=== PATIENT | female | born 1995 | race Hispanic/Latino ===

== ENCOUNTER 2021-05-20 11:05 | Emergency (ER) | payer SELFPAY ==
--- NOTE | 2021-05-20 11:48 | ER ---
Nurse's Notes [facility] Name: Sarah Brunner Age: 25 yrs Sex: Female : 1995 Arrival Date: 05/20/2021 Time: 11:08 Bed 12 Private MD: None, None Diagnosis: Acute serous otitis media, bilateral-Unresponsive to ciprofloxacin Presentation: 05/20 11:14 Chief complaint: Patient states: ear infection X 2 weeks, started in right now in left, iw was on abx has three more pills left, not getting better. Coronavirus screen: At this time, the client does not indicate any symptoms associated with coronavirus-19. Ebola Screen: Patient negative for fever greater than or equal to 101.5 degrees Fahrenheit, and additional compatible Ebola Virus Disease symptoms Patient denies exposure to infectious person. Patient denies travel to an Ebola-affected area in the 21 days before illness onset. No symptoms or risks identified at this time. Initial Sepsis Screen: Does the patient meet any 2 criteria? No. Patient's initial sepsis screen is negative. Does the patient have a suspected source of infection? No. Patient's initial sepsis screen is negative. Risk Assessment: Do you want to hurt yourself or someone else? Patient reports no desire to harm self or others. Onset of symptoms was May 06, 2021. 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 - Social history:: Smoking status: Patient uses street drugs, marijuana. Screenin:22 Abuse screen: Denies threats or abuse. Denies injuries from another. Nutritional iw screening: No deficits noted. Tuberculosis screening: No symptoms or risk factors identified. Fall Risk None identified. Assessment: 11:22 General: Appears in no apparent distress. Behavior is calm, cooperative. Pain:. Neuro: iw Level of Consciousness is awake, alert, obeys commands, Oriented to person, place, time, situation, Moves all extremities. Full function. EENT: Reports pain in right ear and left ear. Vital Signs: 11:14 BP 121 / 85; Pulse 62; Resp 16; Temp 98.6; Pulse Ox 97% on R/A; Weight 58.97 kg; Height iw 5 ft. 1 in. (154.94 cm); Pain 5/10; 11:14 Body Mass Index 24.56 (58.97 kg, 154.94 cm) iw ED Course: 11:08 Patient arrived in ED. ap4 11:08 None, None is Private Physician. ap4 11:16 Triage completed. iw 11:16 Arm band placed on. iw 11:17 Ramirez Young MD is Attending Physician. kdr 11:22 Shaunna Breaux, RN is Primary Nurse. iw 11:55 No provider procedures requiring assistance completed. Patient did not have IV access ss during this emergency room visit. Administered Medications: No medications were administered Outcome: 11:48 Discharge ordered by . kdr 11:55 Discharged to home ambulatory, with family. ss 11:55 Condition: good 11:55 Discharge instructions given to patient, Instructed on discharge instructions, follow up and referral plans. Demonstrated understanding of instructions, follow-up care, medications, Prescriptions given X 2. 11:56 Patient left the ED. ss Signatures: Ramirez Young MD MD kdr Shaunna Breaux, MATHEW CARMONA Leisa Raza RN RN Susu Salcedo ap4
--- NOTE | 2021-05-20 11:48 | EDPHYS ---
Physician Documentation [facility] Name: Sarah Brunner Age: 25 yrs Sex: Female : 1995 Arrival Date: 05/20/2021 Time: 11:08 Bed 12 Private MD: None, None ED Physician Ramirez Young HPI: 05/20 16:45 This 25 yrs old Female presents to ER via Ambulatory with complaints of Ear kdr Pain. 16:45 The patient presents with pain. The complaints affect the left ear and right ear. kdr Onset: The symptoms/episode began/occurred gradually, 2 week(s) ago. Modifying factors: The symptoms are alleviated by nothing, the symptoms are aggravated by nothing. Associated signs and symptoms: The patient has no apparent associated signs or symptoms. Severity of symptoms: At their worst the symptoms were mild in the emergency department the symptoms are unchanged. The patient has not experienced similar symptoms in the past. The patient has been recently seen by a physician: Was seen at outside facility ([facility]) and given antibiotics which she has taken intermittently. 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 - Social history:: Smoking status: Patient uses street drugs, marijuana. ROS: 16:45 Constitutional: Negative for fever, chills, and weight loss, Eyes: Negative for injury, kdr pain, redness, and discharge, Neck: Negative for injury, pain, and swelling. 16:45 ENT: Positive for ear pain. Exam: 16:45 ENT: External ear(s): are unremarkable, Ear canal(s): are normal, TM's: bulging, kdr decreased mobility, dullness, erythema, bilaterally. 16:53 Constitutional: This is a well developed, well nourished patient who is awake, alert, kdr and in no acute distress. Head/Face: Normocephalic, atraumatic. Eyes: Pupils equal round and reactive to light, extra-ocular motions intact. Lids and lashes normal. Conjunctiva and sclera are non-icteric and not injected. Cornea within normal limits. Periorbital areas with no swelling, redness, or edema. Neck: Trachea midline, no thyromegaly or masses palpated, and no cervical lymphadenopathy. Supple, full range of motion without nuchal rigidity, or vertebral point tenderness. No Meningismus. Chest/axilla: Normal chest wall appearance and motion. Nontender with no deformity. No lesions are appreciated. Vital Signs: 11:14 BP 121 / 85; Pulse 62; Resp 16; Temp 98.6; Pulse Ox 97% on R/A; Weight 58.97 kg; Height iw 5 ft. 1 in. (154.94 cm); Pain 5/10; 11:14 Body Mass Index 24.56 (58.97 kg, 154.94 cm) iw MDM: 11:48 Patient medically screened. kdr 16:45 Data reviewed: vital signs, nurses notes. Counseling: I had a detailed discussion with kdr the patient and/or guardian regarding: the historical points, exam findings, and any diagnostic results supporting the discharge/admit diagnosis, the need for outpatient follow up. Administered Medications: No medications were administered Disposition Summary: 05/20/21 11:48 Discharge Ordered Location: Home kdr Problem: an ongoing problem kdr Symptoms: are unchanged kdr Condition: Stable kdr Diagnosis - Acute serous otitis media, bilateral - Unresponsive to ciprofloxacin kdr Followup: kdr - With: Private Physician - When: 2 - 3 days - Reason: If symptoms return, Further diagnostic work-up, Recheck today's complaints, Continuance of care, Re-evaluation by your physician Discharge Instructions: - Discharge Summary Sheet kdr - Otitis Media, Adult kdr Forms: - Medication Reconciliation Form kdr - Thank You Letter kdr - Antibiotic Education kdr Prescriptions: - Amoxicillin 500 mg Oral Capsule - take 1 capsule by ORAL route every 8 hours for 10 days; 30 tablet; Refills: 0, kdr Product Selection Permitted - Sudafed 12 Hour 120 mg Oral tablet extended release - take 1 tablet by ORAL route every 12 hours As needed; 20 tablet; Refills: 0, kdr Product Selection Permitted Signatures: Ramirez Young MD MD kdr Shaunna Breaux RN RN iw
[2021-05-20 12:02] VITALS: BP 121/85; TEMP 98.6; O2SAT 97
== END 2021-05-20 11:56 | disposition home or self-care (01) ==
LOC: ER 11:05 → EDBD 11:05 → ER 11:56
DX: H65.03 Acute serous otitis media, bilateral (principal)
CPT/HCPCS: 99282

== ENCOUNTER 2021-05-23 08:04 | Emergency (ER) | payer SELFPAY ==
--- OUTSIDE RECORDS SUMMARY | 2021-05-23 08:06 | XMS REPORT | Continuity of Care Document ---
:1995 Author Organization [facility] t Address [address] [place] [address] Care Team Providers Name Role Phone CAMILLE Primary Care Physician Unavailable kina Attending Clinician Unavailable kalen Attending Clinician Unavailable RADHA Attending Clinician Unavailable CAMILLE Attending Clinician Unavailable West Infante Attending Clinician [phone] Wayne Attending Clinician Unavailable YADIRA Attending Clinician Unavailable Jean Carlos STARK Attending Clinician Unavailable Jean Carlos RIVAS Attending Clinician Unavailable MARIA DE JESUS Attending Clinician Unavailable ALLEN Attending Clinician Unavailable DO Ellen VILLA Attending Clinician Unavailable GAEL Admitting Clinician Unavailable ALLEN DO Ellen Admitting Clinician Unavailable Segun Unavailable Unavailable Payers Payer Name Policy Type Policy Number Effective Date Expiration Date S zeinab Sliding Fee - P [id number] 2020 2021 [facility] 00:00:00 00:00:00 Sliding Fee - S [id number] 2020 2021 [facility] 00:00:00 00:00:00 Sliding Fee - CI [id number] 2020 2021 [facility] 00:00:00 00:00:00 Community Health Problems Condition Condition Condition Status Onset Resolution Last Treating Co mments Source Name Details Category Date Date Treatment Clinician Date Screening Condition Active 2020-10-26 Jose Cast for 10-26 11:41:51 Mariza Kojo pulmonary 00:00: ty TB 00 Health Allergies, Adverse Reactions, Alerts This patient has no known allergies or adverse reactions. Social History Social Habit Start Date Stop Date Quantity Comments Source bone marrow 2020-10-26 2020-10-26 No [facility] transplant, hx of 11:24:21 11:24:21 Health tuberculosis 2020-10-26 2020-10-26 No [facility] exposure risk 11:24:21 11:24:21 Health is there any chance 2020-10-26 2020-10-26 No [facility] that you could be 11:24:21 11:24:21 Health ? if the patient is 2020-10-26 2020-10-26 No [facility] using/has used a 11:24:21 11:24:21 Health vaping item, Current, Former, Never Used, Not asked time of call 2020-10-25 2020-10-25 10/25/2020 [facility] 11:03:55 11:03:55 11:04 AM Health Medications Ordered Filled Start Stop Current Ordering Indication Dosage Frequency Signature Comments Components Source Medication Medication Date Date Medication? Clinician (SIG) Name Name (AMOXICILLI Yes Silvia Take 1 [place] N) 500 MG 8-11 [facility] capsule by Co m[facility]i CAPS 00:00: Naresh mouth ty 00 every Health eight hours as directed take until gone for dental infection IBU Yes Silvia Take 1 [facility] (IBUPROFEN) 8-11 [facility] tablet by C ommuni 800 MG TABS 00:00: Naresh mouth ty 00 every Health eight hours as needed for pain Vital Signs Vital Name Observation Time Observation Value Comments Source pulse rate 2021-02-09 09:34:59 56 /min [facility] blood pressure, 2021-02-09 09:34:59 68 mm[Hg] [facility] diastolic Health blood pressure, 2021-02-09 09:34:59 106 mm[Hg] [facility] systolic Health blood pressure, 2020-10-26 11:24:21 70 mm[Hg] [facility] diastolic Health blood pressure, 2020-10-26 11:24:21 113 mm[Hg] [facility] systolic Health oxygen saturation, 2020-10-26 11:24:21 98 /min Radha hernandez [facility] oximetry Health pulse rate 2020-10-26 11:24:21 64 /min [facility] temperature site 2020-10-26 11:24:21 temporal Lega cy [facility] Health temperature E&M 2020-10-26 11:24:21 97.2 [degF] [facility] weight E&M 2020-10-26 11:24:21 127.25 [lb_av] [facility] in [facility] 2020-10-26 11:24:21 57.84 kg L egacy [facility] E& Health height in 2020-10-26 11:24:21 154.94 cm [facility] centimeters E&M Health Procedures Procedure Date / Time Performed Performing Clinician Sourc e PPD - In House 2020-10-26 11:36:56 Jeff Cruz [facility] Health Vaccines Ordered - 2020-10-26 11:27:00 Jeff Cruz [facility] Consent/Declination Forms Encounters Start End Encounter Admission Attending Care Care Encounter Source Date/Time Date/Time Type Type Clinicians Facility Department ID 2021-04-17 Outpatient [email or web address] [facility] [id number] [facility] 14:15:37 [id number] [facility] 2021-04-17 Outpatient [email or web address] [facility] [id number] [facility] 12:24:01 [id number] [facility] 2021-04-17 Outpatient [email or web address] [facility] [id number] [facility] 11:59:04 [id number] [facility] 2021-04-17 Outpatient [email or web address] [facility] [id number] [facility] 11:14:38 [id number] [facility] 2021-04-17 Outpatient [email or web address] [facility] [id number] [facility] 11:11:07 n [id number] [facility] 2021-04-17 Outpatient [email or web address] [facility] [id number] [facility] 11:01:40 n [id number] [facility] 2021-04-17 Outpatient [email or web address] [facility] [id number] [facility] 10:58:42 n [id number] [facility] 2021-06-22 2021-06-22 Outpatient , [facility] [id number] [place] 00:00:00 00:00:00 Health 2021-04-13 2021-04-13 Outpatient , [facility] [id number] [place] 06:26:41 16:20:28 [facility] 2021-03-02 2021-03-02 Outpatient LE, RAIN [facility] [id number] [place] 09:44:42 11:02:28 [facility] 2021-02-10 2021-02-10 Outpatient CAMILLE, [facility] [id number] [place] 00:00:00 00:00:00 [facility] 2021-02-09 2021-02-09 Office Silvia Infante [facility] Encounter/ [facility] 00:00:00 00:00:00 Visit Wayne Brittanie [id number] [facility] [id number] [facility] 2021-01-13 2021-01-13 Outpatient CAMILLE, [facility] [id number] [place] 11:17:18 11:24:03 [facility] 2021-01-13 2021-01-13 Outpatient CAMILLE, [facility] [id number] [place] 10:01:53 10:40:57 [facility] 2021-01-13 2021-01-13 Outpatient CAMILLE, [facility] [id number] [place] 00:00:00 00:00:00 [facility] 2021-01-12 2021-01-12 Outpatient CAMILLE, [facility] [id number] [place] 00:00:00 00:00:00 [facility] 2021-01-06 2021-01-11 Inpatient ABID, [facility] [id number] [place] 17:41:00 13:00:00 [facility] 2021-01-05 2021-01-05 Outpatient CAMILLE, [facility] [id number] [place] 14:56:51 23:59:00 [facility] 2021-01-05 2021-01-05 Emergency [facility] [id number] [place] 13:56:00 14:40:00 [facility] 2020-12-08 2020-12-08 Outpatient STARK, [facility] [id number] [place] 06:36:26 09:31:41 [facility] 2020-12-07 2020-12-07 Outpatient EVELYN, [facility] [id number] [place] 00:00:00 00:00:00 [facility] 2020-08-11 2020-08-25 [id number] [place] 00:00:00 00:00:00 JOSH [address] 2020-08-09 2020-08-11 Emergency SVACH, [facility] [id number] [place] 00:00:00 00:00:00 L[facility] [address] Results Test Description Test Time Test Comments Results Result Comments Source PPD results in mm 2020-10-28 08:46:32 Test Item Value Reference Range Interpretation Comme nts PPD results in mm (test code = 443757) 0 [facility] [Presence] in Respiratory specimen by GWEN with probe [id number] 19:08:37 Test Item Value Reference Range Interpretation Comments SARS-CoV-2 (COVID-19) RNA Not detected Not-Detected [Presence] in Respiratory specimen by GWEN with probe detection (test code = 46772-3)
--- NOTE | 2021-05-23 08:29 | ER ---
Nurse's Notes [facility] Name: Sarah Brunner Age: 25 yrs Sex: Female : 1995 Arrival Date: 05/23/2021 Time: 08:05 Bed Waiting Private MD: Diagnosis: Unspecified otitis externa, left ear Presentation: 05/23 08:23 Chief complaint: Patient states: left ear pain X 2 weeks , has been on two abx. iw Coronavirus screen: At this time, the client does not indicate any symptoms associated with coronavirus-19. Ebola Screen: Patient negative for fever greater than or equal to 101.5 degrees Fahrenheit, and additional compatible Ebola Virus Disease symptoms Patient denies exposure to infectious person. Patient denies travel to an Ebola-affected area in the 21 days before illness onset. No symptoms or risks identified at this time. Initial Sepsis Screen: Does the patient meet any 2 criteria? No. Patient's initial sepsis screen is negative. Does the patient have a suspected source of infection? No. Patient's initial sepsis screen is negative. Risk Assessment: Do you want to hurt yourself or someone else? Patient reports no desire to harm self or others. Onset of symptoms was May 11, 2021. 08:23 Method Of Arrival: Ambulatory iw 08:23 Acuity: VIC 4 iw Historical: - Allergies: 08:24 No Known Allergies; iw - Home Meds: 08:24 None [Active]; iw - PMHx: 08:24 None; iw - PSHx: 08:24 back; iw - Immunization history:: Adult Immunizations unknown. - Social history:: Smoking status: . Screenin:26 Abuse screen: Denies threats or abuse. Denies injuries from another. Nutritional iw screening: No deficits noted. Tuberculosis screening: No symptoms or risk factors identified. Fall Risk None identified. Assessment: 08:25 General: Appears in no apparent distress. Behavior is calm, cooperative. Pain: iw Complains of pain in left eye. Neuro: Level of Consciousness is awake, alert, obeys commands, Oriented to person, place, time, situation, Moves all extremities. Full function. EENT: Ear canal. Derm: Skin is intact, is healthy with good turgor. Musculoskeletal: Range of motion: intact in all extremities. Vital Signs: 08:23 BP 120 / 73; Pulse 64; Resp 16; Temp 97.6; Pulse Ox 100% on R/A; iw ED Course: 08:05 Patient arrived in ED. ds1 08:24 Triage completed. iw 08:25 Arm band placed on. iw 08:26 No provider procedures requiring assistance completed. Patient did not have IV access iw during this emergency room visit. 08:27 Phil Ingram NP is PHCP. pm1 08:27 Ramirez Young MD is Attending Physician. pm1 08:43 Shaunna Breaux, RN is Primary Nurse. iw 08:43 Patient has correct armband on for positive identification. iw Administered Medications: No medications were administered Outcome: :28 Discharge ordered by MD. pm1 08:43 Discharged to home ambulatory. iw 08:43 Condition: good 08:43 Discharge instructions given to patient, Instructed on discharge instructions, follow up and referral plans. medication usage, Demonstrated understanding of instructions, follow-up care, medications, Prescriptions given X 1. 08:43 Patient left the ED. 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
--- NOTE | 2021-05-23 08:29 | EDPHYS ---
Physician Documentation [facility] Name: Sarah Brunner Age: 25 yrs Sex: Female : 1995 Arrival Date: 05/23/2021 Time: 08:05 Bed Waiting Private MD: ED Physician Ramirez Young HPI: 05/23 08:28 This 25 yrs old Female presents to ER via Ambulatory with complaints of Ear pm1 Pain. 08:28 The patient presents with pain. The complaints affect the left ear. Onset: The pm1 symptoms/episode began/occurred 2 week(s) ago. Modifying factors: The symptoms are alleviated by nothing, the symptoms are aggravated by nothing. Associated signs and symptoms: Pertinent negatives: fever. Severity of symptoms: in the emergency department the symptoms have improved prior visit patient diagnosed with bilateral otitis media. Patient currently only complaining of left ear pain. The patient has been recently seen at the [facility] Emergency Department, for similar complaints was given a prescription for antibiotics, 3 days ago. Historical: - Allergies: 08:24 No Known Allergies; iw - Home Meds: 08:24 None [Active]; iw - PMHx: 08:24 None; iw - PSHx: 08:24 back; iw - Immunization history:: Adult Immunizations unknown. - Social history:: Smoking status: . ROS: 08:28 Constitutional: Negative for fever, chills, and weight loss. pm1 08:28 Cardiovascular: Negative for chest pain, palpitations, and edema, Respiratory: Negative for shortness of breath, cough, wheezing, and pleuritic chest pain, Abdomen/GI: Negative for abdominal pain, nausea, vomiting, diarrhea, and constipation, Neuro: Negative for headache, weakness, numbness, tingling, and seizure. 08:28 ENT: Positive for ear pain, Negative for drainage from ear(s), sore throat. 08:28 All other systems are negative. Exam: 08:28 Constitutional: This is a well developed, well nourished patient who is awake, alert, pm1 and in no acute distress. Head/Face: Normocephalic, atraumatic. 08:28 Skin: Warm, dry with normal turgor. Normal color with no rashes, no lesions, and no evidence of cellulitis. MS/ Extremity: Pulses equal, no cyanosis. Neurovascular intact. Full, normal range of motion. 08:28 ENT: External ear(s): are unremarkable, Ear canal(s): swelling, that is minimal, of the left canal, TM's: are normal, bilaterally, Mouth: no acute changes, Lips: normal, moist, Oral mucosa: normal, pink and intact, moist. 08:28 Cardiovascular: Exam negative for acute changes, Rate: normal, Rhythm: regular, Pulses: no pulse deficits are appreciated, Heart sounds: normal. 08:28 Respiratory: Exam negative for acute changes, respiratory distress, shortness of breath. 08:28 Neuro: Exam negative for acute changes, Orientation: is normal, Mentation: is normal, Motor: is normal, moves all fours, Gait: is steady, at a normal pace, without difficulty. Vital Signs: 08:23 BP 120 / 73; Pulse 64; Resp 16; Temp 97.6; Pulse Ox 100% on R/A; iw MDM: 08:27 Data reviewed: vital signs. Data interpreted: Pulse oximetry: on room air is 100 %. pm1 Interpretation: normal. Counseling: I had a detailed discussion with the patient and/or guardian regarding: the historical points, exam findings, and any diagnostic results supporting the discharge/admit diagnosis, the need for outpatient follow up, an ENT specialist, to return to the emergency department if symptoms worsen or persist or if there are any questions or concerns that arise at home. 08:28 Patient medically screened. pm1 08:28 Data reviewed: old medical records, Prior ER visit reviewed from 3 days ago. Patient pm1 diagnosed with bilateral otitis media. Patient without any signs of otitis media present. Antibiotics and treatment from prior visit addressing that issue however otitis external to left ear is now present will treat with appropriate medication. Administered Medications: No medications were administered Disposition: 13:37 Co-signature as Attending Physician, Ramirez Young MD I agree with the assessment and kdr plan of care. Disposition Summary: 05/23/21 08:28 Discharge Ordered Location: Home pm1 Problem: new pm1 Symptoms: have improved pm1 Condition: Stable pm1 Diagnosis - Unspecified otitis externa, left ear pm1 Followup: pm1 - With: Emergency Department - When: As needed - Reason: Worsening of condition Followup: pm1 - With: Private Physician - When: 2 - 3 days - Reason: Recheck today's complaints, Continuance of care, Re-evaluation by your physician Discharge Instructions: - Discharge Summary Sheet pm1 - Ear Drops, Adult pm1 - Otitis Externa pm1 Forms: - Medication Reconciliation Form pm1 - Thank You Letter pm1 - Antibiotic Education pm1 - Prescription Opioid Use pm1 Prescriptions: - Hydrocortisone/neomycin/polymyxin otic suspension - instill 4 drop by OTIC route every 6 hours for 10 days; 10 milliliter; Refills: pm1 0, Product Selection Permitted Signatures: Ramirez Young MD MD kdr Shaunna Breaux RN RN iw Phil Ingram NP VETERINARY PATHOLOGIST pm1 Corrections: (The following items were deleted from the chart) 08:25 08:24 Home Meds: Unable to obtain; [facility]
[2021-05-23 08:52] VITALS: BP 120/73; TEMP 97.6; O2SAT 100
== END 2021-05-23 08:43 | disposition home or self-care (01) ==
LOC: ER 08:04
DX: H60.92 Unspecified otitis externa, left ear (principal)
CPT/HCPCS: 99282

== ENCOUNTER 2021-06-01 10:49 | Emergency (ER) | payer SELFPAY ==
--- OUTSIDE RECORDS SUMMARY | 2021-06-01 11:11 | XMS REPORT | Continuity of Care Document ---
:[address] [facility] t Address [address] [place] [address] Dr. Olson [address] [place] [address] Care Team Providers Name Role Phone CAMILLE Primary Care Physician Unavailable kina Attending Clinician Unavailable kalen Attending Clinician Unavailable RADHA Attending Clinician Unavailable CAMILLE Attending Clinician Unavailable [place] Infante Attending Clinician [phone] Wayne Attending Clinician Unavailable YADIRA Attending Clinician [...] Date S zeinab Sliding Fee - P [id number] 2020 2021 [facility] 00:00:00 00:00:00 Sliding Fee - S [id number] 2020 2021 [facility] 00:00:00 00:00:00 Sliding Fee - CI [id number] 2020 2021 [facility] 00:00:00 00:00:00 [...] is there any chance 2020-10-26 2020-10-26 [facility] could be 11:24:21 11:24:21 Health ? if the patient is 2020-10-26 2020-10-26 No [facility] using/has used a 11:24:21 11:24:21 Health vaping [...] Source pulse rate 2021-02-09 09:34:59 56 /min [facility] blood pressure, 2021-02-09 09:34:59 68 mm[Hg] [facility] diastolic Health blood pressure, 2021-02-09 09:34:59 106 mm[Hg] [facility] systolic Health temperature E&M 2020-10-26 11:24:21 97.2 [degF] [facility] Health weight E&M 2020-10-26 11:24:21 127.25 [lb_av] [facility] Health weight in kilograms 2020-10-26 11:24:21 57.84 kg L [facility] E&M Health height in 2020-10-26 11:24:21 154.94 cm [facility] centimeters [facility]M Health blood pressure, 2020-10-26 11:24:21 70 mm[Hg] [facility] diastolic Health blood pressure, 2020-10-26 11:24:21 113 mm[Hg] [facility] systolic Health oxygen saturation, 2020-10-26 11:24:21 98 /min Radha hernandez [facility] oximetry Health pulse rate 2020-10-26 11:24:21 64 /min [facility] 2020-10-26 11:24:21 temporal Lega [facility] Procedures Procedure Date / Time Performed Performing Clinician Sourc e PPD - In House 2020-10-26 11:36:56 Jeff Cruz Commu nit Health Vaccines Ordered - 2020-10-26 11:27:00 [facility] Consent/Declination Forms Encounters Start End Encounter Admission Attending Care Care Encounter Source Date/Time Date/Time Type Type Clinicians Facility Department ID 2021-04-17 Outpatient lc.maria elena [facility] [id number] [facility] 14:15:37 [id number] [facility] 2021-04-17 Outpatient lc.nikiaarp [facility] [id number] [facility] 12:24:01 [id number] [facility] 2021-04-17 Outpatient lc.nikiaarp [facility] [id number] [facility] 11:59:04 [id number] [facility] 2021-04-17 Outpatient lc.maria elena [facility] [id number] [facility] 11:14:38 [id number] [facility] 2021-04-17 Outpatient lc.justinkirstie [facility] [id number] [facility] 11:11:07 n [id number] [facility] 2021-04-17 Outpatient lc.justinkirstie [facility] [id number] [facility] 11:01:40 n [id number] [facility] 2021-04-17 Outpatient lc.justinkirstie [facility] [id number] [facility] 10:58:42 n [id number] [facility] 2021-06-22 2021-06-22 Outpatient LE, [facility] [id number] [place] 00:00:00 00:00:00 Health 2021-04-13 2021-04-13 Outpatient , [facility] [id number] [place] 06:26:41 16:20:28 [facility] 2021-03-02 2021-03-02 Outpatient LE, RAIN [facility] [id number] [place] 09:44:42 11:02:28 [facility] 2021-02-10 2021-02-10 Outpatient CAMILLE, [facility] [id number] [place] 00:00:00 00:00:00 [facility] 2021-02-09 2021-02-09 Office Silvia Infante [facility] Encounter/ [facility] 00:00:00 00:00:00 Visit Wayne Brittanie [id number] [facility] [id number] [facility] 2021-01-13 2021-01-13 Outpatient CAMILLE, [facility] [id number] [place] 11:17:18 11:24:03 [facility] 2021-01-13 2021-01-13 Outpatient CAMILLE, [facility] [id number] [place] 10:01:53 10:40:57 [facility] 2021-01-13 2021-01-13 Outpatient CAMILLE, [facility] [id number] [place] 00:00:00 00:00:00 [facility] 2021-01-12 2021-01-12 Outpatient CAMILLE, [facility] [id number] [place] 00:00:00 00:00:00 [facility] 2021-01-06 2021-01-11 Inpatient ABID, [facility] [id number] [place] 17:41:00 13:00:00 [facility] 2021-01-05 2021-01-05 Outpatient CAMILLE, [facility] [id number] [place] 14:56:51 23:59:00 [facility] 2021-01-05 2021-01-05 Emergency [facility] [id number] [place] 13:56:00 14:40:00 [facility] 2020-12-08 2020-12-08 Outpatient STARK, [facility] [id number] [place] 06:36:26 09:31:41 [facility] 2020-12-07 2020-12-07 Outpatient EVELYN, [facility] [id number] [place] 00:00:00 00:00:00 [facility] 2020-08-11 2020-08-25 [id number] [place] 00:00:00 00:00:00 JOSH [address] 2020-08-09 2020-08-11 Emergency SVACH, [facility] [id number] [place] 00:00:00 00:00:00 LORY [address] Results Test Description Test Time Test Comments Results Result Comments Source PPD results in mm 2020-10-28 08:46:32 Test Item Value Reference Range Interpretation Comme nts PPD results in mm (test code = 594671) 0 [facility] RNA [Presence] in Respiratory specimen by GWEN with probe [id number] 19:08:37 Test Item Value Reference Range Interpretation Comments SARS-CoV-2 (COVID-19) RNA Not detected Not-Detected [Presence] in Respiratory specimen by GWEN with probe detection (test code = 94084-4)
[2021-06-01 13:00] LABS: Urine Blood Negative (Negative); Urine Glucose Negative (Negative); Urine Protein Negative (Negative); Urine Specific Gravity 1.025 (1.005-1.030)
--- NOTE | 2021-06-01 14:05 | ER ---
[facility]'s [facility] Name[facility] Sarah Brun[facility] Age: 25 yrs Sex: Female : 1995 Arrival Date: 06/01/2021 Time: 10:51 Bed 12 Private MD: Diagnosis: Dysuria Presentation: 06/01 11:06 Chief complaint: Patient states: Odor in urine, cloudy, and burning for about a week. vg1 Denies NV or blood in urine. States Lower ABD pain. Coronavirus screen: Vaccine status: Patient reports receiving the 2nd dose of the covid vaccine. Ebola Screen: Patient negative for fever greater than or equal to 101.5 degrees Fahrenheit, and additional compatible Ebola Virus Disease symptoms. Initial Sepsis Screen: Does the patient meet any 2 criteria? No. Patient's initial sepsis screen is negative. Does the patient have a suspected source of infection? No. Patient's initial sepsis screen is negative. Risk Assessment: Do you want to hurt yourself or someone else? Patient reports no desire to harm self or others. Onset of symptoms was May 25, 2021. 11:06 Method Of Arrival: Ambulatory vg1 11:06 Acuity: VIC 3 vg1 Triage Assessment: 11:07 General: Appears in no apparent distress. comfortable, Behavior is calm, cooperative. vg1 Pain: Complains of pain in suprapubic area, right lower quadrant and left lower quadrant. 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 - Social history:: Smoking status: Patient denies any tobacco usage or history of. Screenin:16 Abuse screen: Denies threats or abuse. Denies injuries from another. Nutritional ss screening: No deficits noted. Tuberculosis screening: Never had TB. Fall Risk None identified. Assessment: 14:16 General: Appears in no apparent distress. comfortable, Behavior is calm, cooperative. ss Neuro: Level of Consciousness is awake, alert, obeys commands, Oriented to person, place, time, situation. Cardiovascular: Capillary refill < 3 seconds is brisk in bilateral fingers. Respiratory: Airway is patent Respiratory effort is even, unlabored, Respiratory pattern is regular, symmetrical. GI: Patient currently denies diarrhea, nausea, vomiting. : No signs and/or symptoms were reported regarding the genitourinary system. EENT: Oral mucosa is moist. Derm: Skin is intact, is healthy with good turgor, Skin is dry, Skin is pink, warm \T\ dry. normal. Vital Signs: 11:06 BP 105 / 65; Pulse 90; Resp 16; Temp 97.6; Pulse Ox 99% ; Weight 58.97 kg; Height 5 ft. vg1 1 in. (154.94 cm); Pain 4/10; 11:06 Body Mass Index 24.56 (58.97 kg, 154.94 cm) vg1 ED Course: 10:51 Patient arrived in ED. as 11:07 Triage completed. vg1 11:07 Arm band placed on. vg1 11:46 James Muniz PA is PHCP. [facility] 11:46 Justin Garnica MD is Attending Physician. [facility] 14:14 Leisa Raza, MATHEW is Primary Nurse. ss 14:16 Patient has correct armband on for positive identification. Bed in low position. Call ss light in reach. 14:18 No provider procedures requiring assistance completed. Patient did not have IV access ss during this emergency room visit. Administered Medications: No medications were administered Outcome: 14:04 Dis[address] ordered [address] . [facility] 14:18 Discharged to home ambulatory, with family. ss 14:18 Condition: good 14:18 Discharge instructions given to patient, family, Instructed on discharge instructions, follow up and referral plans. medication usage, Demonstrated understanding of instructions, follow-up care, medications, Prescriptions given X 2. 14:18 Patient left the ED. ss Signatures: James Muniz PA PA jmm Martinez, Amelia as Smirch, Shelby, MATHEW RN Aarti Dooley RN RN vg1
--- NOTE | 2021-06-01 14:05 | EDPHYS ---
Physician Documentation [facility] Name: Sarah Brunner Age: 25 yrs Sex: Female : 1995 Arrival Date: 06/01/2021 Time: 10:51 Bed 12 Private MD: MICK Physician Justin Garnica HPI: 06/01 12:55 This 25 yrs old Female presents to ER via Ambulatory with complaints of jmm Urinary Problem. 12:55 The patient presents with perineal itching. Onset: The symptoms/episode began/occurred jmm gradually, 2 week(s) ago. Modifying factors: The symptoms are alleviated by nothing, the symptoms are aggravated by nothing. This is a 25-year-old female no chronic medical conditions presents emerged part with complaints of dysuria, vaginal itching which the patient states is consistent with previous urinary tract infections. Patient states that symptoms were exacerbated after intercourse.. 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 - Social history:: Smoking status: Patient denies any tobacco usage or history of. ROS: 12:55 Constitutional: Negative for fever, chills, and weight loss, Cardiovascular: Negative jmm for chest pain, palpitations, and edema, Respiratory: Negative for shortness of breath, cough, wheezing, and pleuritic chest pain. 12:55 : Positive for urinary symptoms. 12:55 All other systems are negative. Exam: 12:55 Constitutional: This is a well developed, well nourished patient who is awake, alert, jmm and in no acute distress. Head/Face: atraumatic. Eyes: EOMI, no conjunctival erythema appreciated ENT: Moist Mucus Membranes Neck: Trachea midline, Supple Chest/axilla: Normal chest wall appearance and motion. Cardiovascular: Regular rate and rhythm. No edema appreciated Respiratory: Normal respirations, no respiratory distress appreciated Abdomen/GI: Non distended, soft Back: Normal ROM Skin: General appearance color normal MS/ Extremity: Moves all extremities, no obvious deformities appreciated, no edema noted to the lower extremities Neuro: Awake and alert, normal gait Psych: Behavior is normal, Mood is normal, Patient is cooperative and pleasant Vital Signs: 11:06 BP 105 / 65; Pulse 90; Resp 16; Temp 97.6; Pulse Ox 99% ; Weight 58.97 kg; Height 5 ft. vg1 1 in. (154.94 cm); Pain 4/10; 11:06 Body Mass Index 24.56 (58.97 kg, 154.94 cm) vg1 MDM: 12:55 Patient medically screened. [facility] 14:03 Data reviewed: vital signs, nurses notes. Counseling: I had a detailed discussion with jake the patient and/or guardian regarding: the historical points, exam findings, and any diagnostic results supporting the discharge/admit diagnosis, lab results, the need for outpatient follow up, to return to the emergency department if symptoms worsen or persist or if there are any questions or concerns that arise at home. 14:09 ED course: Patient refused pelvic exam. Advised follow-up with REHABILITATION CASEWORKER for further [facility] evaluation. Patient understood and agrees plan of care.. 06/01 12:59 Order name: Urine Dipstick-Ancillary EDMS 06/01 14:08 Order name: Urine --Ancillary (enter results) bd Administered Medications: No medications were administered Disposition: 06/02 09:16 Co-signature as Attending Physician, Justin Garnica MD I agree with the assessment and [facility] plan of care. Disposition Summary: 06/01/21 14:04 Discharge Ordered Location: Home [facility] Condition: Stable [facility] Diagnosis - Dysuria [facility] Followup: [facility] - With: Private Physician - When: 2 - 3 days - Reason: Recheck today's complaints, Continuance of care, Re-evaluation by your physician Discharge Instructions: - Discharge Summary Sheet [facility] - Bacterial Vaginosis [facility] - Dysuria [facility] Forms: - Medication Reconciliation Form [facility] - Thank You Letter [facility] - Antibiotic Education [facility] - Prescription Opioid Use [facility] - Work release form ss Prescriptions: - Flagyl 500 mg Oral Tablet - take 1 tablet by ORAL route every 12 hours for 7 days; 14 tablet; Refills: 0, [facility] Product Selection Permitted - Bactrim DS 800-160 mg Oral Tablet - take 1 tablet by ORAL route every 12 hours for 7 days; 14 tablet; Refills: 0, [facility] Product Selection Permitted Signatures: Dispatcher [employer] EDMS Nahun, Justin, James Harris MD, cha, PA PA jmm Garcia, Victoria, RN RN vg1 Corrections: (The following items were deleted from the chart) 06/01 14:14 13:27 Pelvic Exam Setup ordered. danielle duncan
[2021-06-01 14:25] VITALS: BP 105/65; TEMP 97.6; O2SAT 99
[2021-06-01 14:42] LABS: Urine Specific Gravity/Preg 1.025 (1.005-1.030)
== END 2021-06-01 14:18 | disposition home or self-care (01) ==
LOC: ER 10:49
DX: R30.0 Dysuria (principal)
CPT/HCPCS: 81003; 81025; 99282

== ENCOUNTER 2021-08-02 13:52 | Emergency (ER) | payer SELFPAY ==
--- OUTSIDE RECORDS SUMMARY | 2021-08-02 13:56 | XMS REPORT | Continuity of Care Document ---
:1995 Author Organization [facility] t Address [address] [place] [address] Dr. Olson [address] [place] [address] Care Team Providers Name Role Phone CAMILLE Primary Care Physician Unavailable kina Attending Clinician Unavailable kalen Attending Clinician Unavailable RADHA Attending Clinician Unavailable CAMILLE Attending Clinician Unavailable [place] Infante Attending Clinician [phone] Wayne Attending Clinician Unavailable YADIRA Attending Clinician [...] Date S zeinab Sliding Fee - P [id number] 2020 2021 [facility] 00:00:00 00:00:00 Sliding Fee - S [id number] 2020 2021 [facility] 00:00:00 00:00:00 Sliding Fee - CI [id number] 2020 2021 [facility] 00:00:00 00:00:00 [...] Source pulse rate 2021-02-09 09:34:59 56 [facility] blood pressure, 2021-02-09 09:34:59 68 mm[Hg] Legac y [facility] diastolic Health blood pressure, 2021-02-09 09:34:59 106 mm[Hg] Legac y [facility] systolic Health blood pressure, 2020-10-26 11:24:21 70 mm[Hg] Legac y [facility] diastolic Health blood pressure, 2020-10-26 11:24:21 113 mm[Hg] Legac y [facility] systolic Health oxygen saturation, 2020-10-26 11:24:21 98 /min Radha hernandez [facility] oximetry Health pulse rate 2020-10-26 11:24:21 64 [facility] temperature site 2020-10-26 11:24:21 temporal Lega cy [facility] Health temperature E&M 2020-10-26 11:24:21 97.2 [degF] [facility]ac [facility] weight E&M 2020-10-26 11:24:21 127.25 [lb_av] [facility] weight in kilograms 2020-10-26 11:24:21 57.84 kg L egacy [facility] E& Health height in 2020-10-26 11:24:21 154.94 [...] Clinicians Facility Department ID 2021-04-17 Outpatient lc.nikiaarp [facility] [id number] [facility] 14:15:37 [id number] Critical access hospital 2021-04-17 Outpatient lc.nikiaarp [facility] [id number] [facility] 12:24:01 [id number] Critical access hospital 2021-04-17 Outpatient lc.nikiaarp [facility] [id number] [facility] 11:59:04 [id number] Critical access hospital 2021-04-17 Outpatient lc.nikiaarp [facility] [id number] [facility] 11:14:38 [id number] Critical access hospital 2021-04-17 Outpatient lc.justinkirstie [facility] [id number] [facility] 11:11:07 n [id number] Critical access hospital 2021-04-17 Outpatient lc.renetta [facility] [id number] [facility] 11:01:40 n [id number] Critical access hospital 2021-04-17 Outpatient lc.justinkirstie [facility] [id number] [facility] 10:58:42 n [id number] Critical access hospital 2021-06-22 2021-06-22 Outpatient , [facility] [id number] [place] 00:00:00 00:00:00 Health 2021-04-13 2021-04-13 Outpatient , [facility] [id number] [place] 06:26:41 16:20:28 [facility] 2021-03-02 2021-03-02 Outpatient LE, RAIN [facility] [id number] [place] 09:44:42 11:02:28 [facility] 2021-02-10 2021-02-10 Outpatient CAMILLE, [facility] [id number] [place] 00:00:00 00:00:00 [facility] 2021-02-09 2021-02-09 Office Silvia Infante [facility] Encounter/ [facility] 00:00:00 00:00:00 Visit Wayne Brittanie [id number] [facility] [id number] [facility] 2021-01-13 2021-01-13 Outpatient CAMILLE, [facility] [id number] [place] 11:17:18 11:24:03 [facility] 2021-01-13 2021-01-13 Outpatient CAMILLE, [facility] [id number] [place] 10:01:53 10:40:57 [facility] 2021-01-13 2021-01-13 Outpatient CAMILLE, [facility] [id number] [place] 00:00:00 00:00:00 [facility] 2021-01-12 2021-01-12 Outpatient CAMILLE, [facility] [id number] [place] 00:00:00 00:00:00 [facility] 2021-01-06 2021-01-11 Inpatient ABID, [facility] [id number] [place] 17:41:00 13:00:00 [facility] 2021-01-05 2021-01-05 Outpatient CAMILLE, [facility] [id number] [place] 14:56:51 23:59:00 [facility] 2021-01-05 2021-01-05 Emergency [facility] [id number] [place] 13:56:00 14:40:00 [facility] 2020-12-08 2020-12-08 Outpatient STARK, [facility] [id number] [place] 06:36:26 09:31:41 [facility] 2020-12-07 2020-12-07 Outpatient EVELYN, [facility] [id number] [place] 00:00:00 00:00:00 [facility] 2020-08-11 2020-08-25 [id number] [place] 00:00:00 00:00:00 JOSH [address] 2020-08-09 2020-08-11 Emergency SVACH, [facility] [id number] [place] 00:00:00 00:00:00 LORY [address] Results Test Description Test Time Test Comments Results Result Comments Source PPD results in mm 2020-10-28 08:46:32 Test Item Value Reference Range Interpretation Comme nts PPD results in mm (test code = 241501) 0 mm [facility] RNA [Presence] in Respiratory specimen by GWEN with probe [id number] 19:08:37 Test Item Value Reference Range Interpretation Comments SARS-CoV-2 (COVID-19) RNA Not detected Not-Detected [Presence] in Respiratory specimen by GWEN with probe detection (test code = 79742-8)
[2021-08-02 14:22] LABS: Urine Blood Negative (Negative); Urine Glucose Negative (Negative); Urine Protein Negative (Negative); Urine Specific Gravity 1.025 (1.005-1.030)
[2021-08-02 15:05] LABS: Urine Bacteria <20 /HPF (<20); Urine Mucus 1+ /HPF (NONE SEEN); Urine RBC <5 /HPF (NONE SEEN)
[2021-08-02 15:06] LABS: Urine Specific Gravity/Preg 1.025 (1.005-1.030)
--- NOTE | 2021-08-02 16:10 | EDPHYS ---
Physician Documentation [facility] Name: Sarah Brunner Age: 25 yrs Sex: Female : 1995 Arrival Date: 08/02/2021 Time: 13:57 Bed 9 Private MD: ED Physician Jorge Mendez HPI: 08/02 16:05 This 25 yrs old Female presents to ER via Ambulatory with complaints of cp Urinary Problem. 16:05 The patient presents with urinary symptoms, urinary odor. cp 16:05 Onset: The symptoms/episode began/occurred 3 week(s) ago. Associated signs and cp symptoms: Pertinent positives: suprapubic pain, Pertinent negatives: fever, vaginal bleeding, vaginal discharge. The patient is sexually active. 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 - Social history:: Smoking status: Patient denies any tobacco usage or history of. Patient uses street drugs, marijuana. ROS: 16:07 Constitutional: Negative for body aches, chills, fever, poor PO intake. cp 16:07 Abdomen/GI: Negative for nausea, vomiting, and diarrhea. 16:07 Back: Negative for pain at rest, pain with movement. 16:07 : Positive for foul smelling urine, suprapubic pain. 16:07 Neuro: Negative for altered mental status, headache, weakness. 16:07 All other systems are negative. Exam: 16:07 Head/Face: Normocephalic, atraumatic. cp 16:07 Constitutional: The patient appears in no acute distress, alert, awake, comfortable, non-toxic, well developed, well nourished. 16:07 Cardiovascular: Rate: normal. 16:07 Respiratory: the patient does not display signs of respiratory distress, Respirations: normal. 16:07 Abdomen/GI: Exam negative for discomfort, distension, guarding, Inspection: abdomen appears normal. 16:07 Back: pain, is absent, ROM is normal. cp Vital Signs: 14:05 BP 112 / 97; Pulse 66; Resp 18; Temp 98.3; Pulse Ox 100% on R/A; Weight 54.43 kg; ld1 Height 5 ft. 1 in. (154.94 cm); Pain 3/10; 14:05 Body Mass Index 22.67 (54.43 kg, 154.94 cm) ld1 MDM: 14:22 Patient medically screened. cp 15:00 Differential diagnosis: cervicitis, ectopic , pelvic inflammatory disease, cp urinary tract infection, vaginosis. 16:08 Data reviewed: vital signs, nurses notes, lab test result(s). cp 16:08 Counseling: I had a detailed discussion with the patient and/or guardian regarding: the cp historical points, exam findings, and any diagnostic results supporting the discharge/admit diagnosis, lab results, to return to the emergency department if symptoms worsen or persist or if there are any questions or concerns that arise at home. 08/02 14:13 Order name: Urine Microscopic Only; Complete Time: 15:57 cp 08/02 14:35 Order name: Urine --Ancillary (enter results); Complete Time: 15:57 bd 08/02 14:13 Order name: Urine Dipstick-Ancillary (obtain specimen); Complete Time: 14:24 cp 08/02 14:13 Order name: Urine Test (obtain specimen); Complete Time: 14:24 cp 08/02 14:53 Order name: Urine Dipstick-Ancillary; Complete Time: 15:57 EDMS 08/02 15:12 Order name: Urine Culture EDMS Administered Medications: No medications were administered Disposition: 16:15 Chart complete. cp 18:24 Co-signature as Attending Physician, Jorge Mendez MD I agree with the assessment and rn plan of care. Attestation: The patient's history, exam findings, diagnostics, and a summary of any interventions or procedures was reviewed in detail with Justin DUTTON. Disposition Summary: 08/02/21 16:09 Discharge Ordered Location: Home cp Problem: new cp Symptoms: are unchanged cp Condition: Stable cp Diagnosis - UTI/ Urinary tract infection, site not specified cp Followup: cp - With: Mario Krishna MD - When: 1 week - Reason: symptoms continue Discharge Instructions: - Discharge Summary Sheet cp - Urinary Tract Infection, Adult cp Forms: - Medication Reconciliation Form cp - Thank You Letter cp - Antibiotic Education cp - Prescription Opioid Use cp Prescriptions: - Bactrim DS 800-160 mg Oral Tablet - take 1 tablet by ORAL route every 12 hours for 5 days; 10 tablet; Refills: 0, cp Product Selection Permitted Signatures: Dispatcher [employer] Jorge Matthews MD MD rn Justin Roger PA PA cp Dibbern, Lauren RN RN ld1
--- NOTE | 2021-08-02 16:10 | ER ---
Nurse's Notes [facility] Name: Sarah Brunner Age: 25 yrs Sex: Female : 1995 Arrival Date: 08/02/2021 Time: 13:57 Bed 9 Private MD: Diagnosis: UTI/ Urinary tract infection, site not specified Presentation: 08/02 14:05 Chief complaint: Patient states: Foul urine smell, urinary pain and lower abdominal ld1 cramping. Has recurrent UTIs. Coronavirus screen: Vaccine status: Patient reports receiving the 2nd dose of the covid vaccine. Client denies travel out of the [place] in the last 14 days. Ebola Screen: Patient negative for fever greater than or equal to 101.5 degrees Fahrenheit, and additional compatible Ebola Virus Disease symptoms Patient denies exposure to infectious person. Patient denies travel to an Ebola-affected area in the 21 days before illness onset. Initial Sepsis Screen: Does the patient meet any 2 criteria? No. Patient's initial sepsis screen is negative. Does the patient have a suspected source of infection? No. Patient's initial sepsis screen is negative. Risk Assessment: Do you want to hurt yourself or someone else? Patient reports no desire to harm self or others. Onset of symptoms is unknown. 14:05 Method Of Arrival: Ambulatory ld1 14:05 Acuity: VIC 4 ld1 Triage Assessment: 14:07 General: Appears in no apparent distress. comfortable, Behavior is calm, cooperative. ld1 Pain: Complains of pain in groin. EENT: No signs and/or symptoms were reported regarding the EENT system. Neuro: Level of Consciousness is awake, alert, obeys commands, Oriented to person, place, time, situation, Speech is normal. Cardiovascular: Capillary refill Patient's skin is warm and dry. Respiratory: Airway is patent Respiratory effort is even, unlabored, Respiratory pattern is regular, symmetrical. GI: No signs and/or symptoms were reported involving the gastrointestinal system. : Reports cramping, pain urgency, urinary frequency. Derm: Skin is intact, is healthy with good turgor. SINGLE RESOURCE BOSS: 14:07 LMP 07/16/2021 ld1 Historical: - Allergies: 14:07 No Known Allergies; ld1 - Home Meds: 14:07 None [Active]; ld1 - PSHx: 14:07 back; left foot hardware; ld1 - Immunization history:: Adult Immunizations up to date. - Social history:: Smoking status: Patient denies any tobacco usage or history of. Patient uses street drugs, marijuana. Screenin:09 Abuse screen: Denies threats or abuse. Denies injuries from another. Nutritional ld1 screening: No deficits noted. Tuberculosis screening: No symptoms or risk factors identified. Fall Risk None identified. Assessment: 16:14 Reassessment: See triage assessment. ld1 Vital Signs: 14:05 BP 112 / 97; Pulse 66; Resp 18; Temp 98.3; Pulse Ox 100% on R/A; Weight 54.43 kg; ld1 Height 5 ft. 1 in. (154.94 cm); Pain 3/10; 14:05 Body Mass Index 22.67 (54.43 kg, 154.94 cm) ld1 ED Course: 13:57 Patient arrived in ED. mr 14:07 Triage completed. ld1 14:07 Arm band placed on. ld1 14:13 Justin Roger PA is PHCP. cp 14:13 Jorge Mendez MD is Attending Physician. cp 14:15 Yessica Coyne, RN is Primary Nurse. ww 16:08 Mario Krishna MD is Referral Physician. cp 16:14 Patient has correct armband on for positive identification. Placed in gown. Bed in low ld1 position. Call light in reach. Side rails up X2. Pulse ox on. NIBP on. Door closed. Noise minimized. 16:14 No provider procedures requiring assistance completed. Patient did not have IV access ld1 during this emergency room visit. Administered Medications: No medications were administered Outcome: 16:09 Discharge ordered by MD. cp 16:14 Discharged to home ambulatory. ld1 16:14 Condition: stable 16:14 Discharge instructions given to patient, Instructed on discharge instructions, follow up and referral plans. medication usage, Demonstrated understanding of instructions, follow-up care, medications, Prescriptions given X 1. 16:15 Patient left the ED. ld1 Signatures: Milagro Lockhart mr Justni Roger PA PA cp Dibbern, Lauren RN RN ld1 Yessica Coyne RN RN ww
[2021-08-02 16:22] VITALS: BP 112/97; TEMP 98.3; O2SAT 100
== END 2021-08-02 16:15 | disposition home or self-care (01) ==
LOC: ER 13:52
DX: N39.0 Urinary tract infection, site not specified (principal)
CPT/HCPCS: 81003; 81015; 81025; 87086; 87088; 99283

== ENCOUNTER 2022-03-18 14:20 | Emergency (ER) | payer SELFPAY ==
--- OUTSIDE RECORDS SUMMARY | 2022-03-18 14:23 | XMS REPORT | Continuity of Care Document ---
:1995 Author Organization [facility] t Address [address] [place] [address] Care Team Providers Name Role Phone ENRIQUE OBRIEN Primary Care Physician Unavailable kina Attending Clinician Unavailable RAIN GARCIA Attending Clinician Unavailable ENRIQUE OBRIEN Attending Clinician Unavailable Silvia Infante Attending Clinician [phone] Brittanie Black Attending Clinician Unavailable DEION MAY Attending Clinician Unavailable MER STARK Attending Clinician Unavailable ALFREDA RIVAS Attending Clinician Unavailable JOSH PRETTY Attending Clinician Unavailable LORY VILLA Attending Clinician Unavailable DO LORY VILLA Attending Clinician Unavailable KHRIS MAYO Admitting Clinician Unavailable DO LORY VILLA Admitting Clinician Unavailable Mariza Cast Unavailable Unavailable Payers Payer Name Policy Type Policy Number Effective Date Expiration Date S zeinab Sliding Fee - P [id number] 2020 2021 [facility] 00:00:00 00:00:00 Sliding Fee - S [id number] 2020 2021 [facility] 00:00:00 00:00:00 Sliding Fee - CI [id number] 2020 2021 [facility] 00:00:00 00:00:00 Community Health Problems Condition Condition Condition Status Onset Resolution Last Treating Co mments Source Name Details Category Date Date Treatment Clinician Date Screening Condition Active 2020-10-26 Jose Cast for 4-27 11:41:51 [facility] pulmonary 00:00: ty TB 00 Health Unspecifie Unspecifie Disease Active M ethodi d mood d mood 08-12 (affective (affective 00:00: Ho spita ) disorder ) disorder 00 l Alcohol Alcohol Disease Recurre Method i use use nce 08-12 disorder, disorder, 00:00: Hosp [facility] moderate, moderate, 00 l dependence dependence Homeless Homeless Disease Active Metho di 08-12 00:00: Hospita 00 l 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 Family History Family Member Diagnosis Comments Start Date Stop Date Source Other No Known Problems [facility] Paternal aunt No Known Problems [facility] Paternal No Known Problems [facility] Paternal No Known Problems [facility] Paternal uncle No Known Problems Met [facility] Natural sister No Known Problems Met [facility] Family member ADD / ADHD [facility] Family member Bipolar disorder Metho [facility] Family member Dementia [facility] Family member Depression [facility] Family member Drug abuse [facility] Family member OCD [facility] Family member Paranoid behavior [facility] Family member Schizophrenia [facility] Family member Seizures [facility] Family member Self-Injurious [facility] Family member Suicide Attempts [facility] Natural brother No Known Problems [facility] Cousin No Known Problems [facility] Natural father Alcohol abuse [facility] Maternal aunt No Known Problems [facility] Maternal No Known Problems [facility] Maternal No Known Problems [facility] Maternal uncle No Known Problems Met [facility] Natural mother Anxiety disorder [facility] Social History Social Habit Start Date Stop [...] asked time of call 2020-10-25 2020-10-25 10/25/2020 11:04 [facility] 11:03:55 11:03:55 AM Health Alcohol intake 2020-08-14 2020-08-14 Current drinker Metho dist 00:00:00 00:00:00 of alcohol Hospital (finding) History SDOH Alcohol 2020-08-14 2020-08-14 2 Meth odist Frequency 00:00:00 00:00:00 Hospital History SDOH Alcohol 2020-08-14 2020-08-14 3 Meth odist Std Drinks 00:00:00 00:00:00 Hospital History SDOH Alcohol 2020-08-14 2020-08-14 3 Meth odist Binge 00:00:00 00:00:00 Hospital Tobacco use and 2020-08-09 2020-08-09 Smokeless [facility] exposure 00:00:00 00:00:00 tobacco non-user Hospital Sex Assigned At [birth year] [facility] 00[facility]00 Hospital Smoking Status Start Date Stop Date Source Never smoked tobacco [facility] Medications Ordered Filled Start Stop Current Ordering [...] 1 [facility] (IBUPROFEN) 8-11 West tablet by Karolina ommuni 800 MG TABS 00:00: Naresh mouth ty 00 every Health eight hours as needed for pain No known No No known Metho di medications 2-[address] 17:36: s Hospita 08 l Immunizations Ordered Immunization Filled Immunization Date Status Commen ts Source Name Name PPD Test 2020-08-15 Completed [facility] 00:[facility]00 Hospital Vital Signs Vital Name Observation Time Observation Value Comments Source pulse rate 2021-02-09 09:34:59 56 /min [facility] blood pressure, 2021-02-09 09:34:59 68 mm[Hg] [facility] diastolic [facility] blood pressure, 2021-02-09 09:34:59 106 mm[Hg] [facility] systolic [facility] blood pressure, 2020-10-26 11:24:21 70 mm[Hg] [facility] diastolic [facility] blood pressure, 2020-10-26 11:24:21 113 mm[Hg] [facility] systolic [facility] oxygen saturation, 2020-10-26 11:24:21 98 /min [facility] oximetry Health pulse rate 2020-10-26 11:24:21 64 [facility] 2020-10-26 11:24:21 temporal [facility] temperature E&M 2020-10-26 11:24:21 97.2 [degF] [facility] weight E&M 2020-10-26 11:24:21 127.25 [lb_av] [facility] weight in kilograms 2020-10-26 11:24:21 57.84 kg L [facility] E& Health height in 2020-10-26 11:24:21 154.94 cm [facility] centimeters E&M Health Procedures Procedure Date / Time Performed Performing Clinician Sourc e PPD - In House 2020-10-26 11:36:56 Jeff Cruz Commu nit Health Vaccines Ordered - 2020-10-26 11:27:00 [facility] Forms Encounters Start End Encounter Admission Attending Care Care Encounter Source Date/Time Date/Time Type Type Clinicians Facility Department ID 2021-12-09 Outpatient .maria elena [facility] [id number] [facility] 20:04:50 [id number] [facility] 2021-06-22 2021-06-[address] [facility] [id number] [place] 00:00:00 00:00:00 Health 2021-04-13 2021-04-[address] [facility] [id number] [place] 06:26:41 16:20:28 Health 2021-03-02 2021-03-02 Outpatient LE, RAIN [facility] [id number] [place] 09:44:42 11:02:28 [facility] 2021-02-10 2021-02-10 Outpatient CAMILLE, [facility] [id number] [place] 00:00:00 00:00:00 [facility] 2021-02-09 2021-02-09 Office Silvia Infante [facility] Encounter/ [facility] 00:00:00 00:00:00 Visit Wayne Brittanie [id number] [facility] [id number] [facility] 2021-01-13 2021-01-13 Outpatient CAMILLE, [facility] [id number] [place] 11:17:18 11:24:03 [facility] 2021-01-13 2021-01-13 Outpatient CAMILLE, [facility] [id number] [place] 10:01:53 10:40:57 [facility] 2021-01-13 2021-01-13 Outpatient CAMILLE, [facility] [id number] [place] 00:00:00 00:00:00 [facility] 2021-01-12 2021-01-12 Outpatient CAMILLE, [facility] [id number] [place] 00:00:00 00:00:00 [facility] 2021-01-06 2021-01-11 Inpatient ABID, [facility] [id number] [place] 17:41:00 13:00:00 [facility] 2021-01-05 2021-01-05 Outpatient CAMILLE, [facility] [id number] [place] 14:56:51 23:59:00 [facility] 2021-01-05 2021-01-05 Emergency [facility] [id number] 13:56:00 14:40:00 [facility] 2020-12-08 2020-12-08 Outpatient STARK, [facility] [id number] [place] 06:36:26 09:31:41 [facility] 2020-12-07 2020-12-07 Outpatient EVELYN, [facility] [id number] [place] 00:00:00 00:00:00 [facility] 2020-08-11 2020-08-25 [id number] [place] 00:00:00 00:00:00 JOSH [address] 2020-08-09 2020-08-11 Emergency SVACH, [facility] [id number] [place] 00:00:00 00:00:00 LORY [address] Results Test Description Test Time Test Comments Results Result Comments Source PPD results in mm 2020-10-28 08:46:32 Test Item Value Reference Range Interpretation Comme nts PPD results in mm (test code = 387347) 0 mm [facility]-CoV-2 (COVID-19) RNA [Presence] in Respiratory specimen by GWEN with probe [id number] 19:08:37 Test Item Value Reference Range Interpretation Comments SARS-CoV-2 (COVID-19) RNA Not detected Not-Detected [Presence] in Respiratory specimen by GWEN with probe detection (test code = 29849-6)
[2022-03-18] MEDS ORDERED: Ringers Lactate 1,000 ML IV ONE (15:12)
[2022-03-18 15:21] LABS: Protime INR 1.18
[2022-03-18 15:23] LABS: Absolute Lymphocytes (CBC) 1.9 K/uL (0.7-4.9); Hematocrit 38.5 % (36.0-45.0); MCV 87.2 fL (80-100); MPV 7.7 fL (7.6-11.3); RBC Red Blood Cell Count 4.41 M/uL (3.86-4.86)
[2022-03-18 15:28] LABS: ALT/SGPT 19 U/L (12-78); AST/SGOT 19 U/L (15-37); Albumin 4.2 g/dL (3.4-5.0); Alkaline Phosphatase 56 U/L (45-117); BUN Blood Urea Nitrogen 9 mg/dL (7-18); Bicarbonate 26 mmol/L (21-32); Bilirubin Direct 0.2 mg/dL (0-0.2); Bilirubin Total 0.5 mg/dL (0.2-1.0); Glomerular Filtration Rate 102 ml/min (=/>90); Glucose Level 146 mg/dL (74-106); Magnesium 1.9 mg/dL (1.8-2.4); NT PRO-BNP 47 pg/mL (<125); Potassium 3.4 mmol/L (3.5-5.1); Protein, Total 7.5 g/dL (6.4-8.2); Sodium Level 136 mmol/L (136-145)
--- NOTE | 2022-03-18 16:43 | RAD REPORT ---
EXAM DESCRIPTION: [place] Single View03/18/2022 4:33 pm CLINICAL HISTORY: Abdominal pain COMPARISON: none FINDINGS: The lungs appear clear of acute infiltrate. The heart is normal size. Postsurgical changes involve spine IMPRESSION: No acute abnormalities displayed
[2022-03-18 16:56] LABS: Troponin High Sensitivity < 3.0 pg/mL (<58.9)
--- NOTE | 2022-03-18 17:15 | EDPHYS ---
Physician Documentation [facility] Name: Sarah Brunner Age: 26 yrs Sex: Female : 1995 Arrival Date: 03/18/2022 Time: 14:21 Bed 14 Private MD: ED Physician Lilly Waldrop HPI: 03/18 14:42 This 26 yrs old Female presents to ER via Wheelchair with complaints of jmm syncope. 14:42 The patient has experienced near-syncope, almost passed out. Onset: The jmm symptoms/episode began/occurred today. This is a 26 year old female that presents to the ED with complaints of 2 episodes of near syncope. Patient attributes this to not eating well over the past week. Also complains of chronic constipation. Denies fever, vomiting, dysuria. . Historical: - Allergies: 14:33 No Known Allergies; hb - PSHx: 14:33 back; left foot hardware; hb - Immunization history:: Adult Immunizations up to date. - Social history:: Smoking status: Patient denies any tobacco usage or history of. ROS: 14:42 Constitutional: Negative for fever, chills, and weight loss, Cardiovascular: Negative jm for chest pain, palpitations, and edema, Respiratory: Negative for shortness of breath, cough, wheezing, and pleuritic chest pain. 14:42 Abdomen/GI: Positive for constipation. 14:42 Neuro: Positive for near syncope. 14:42 All other systems are negative. Exam: 14:42 Constitutional: This is a well developed, well nourished patient who is awake, alert, jmm and in no acute distress. Head/Face: atraumatic. Eyes: EOMI, no conjunctival erythema appreciated ENT: Moist Mucus Membranes Neck: Trachea midline, Supple Chest/axilla: Normal chest wall appearance and motion. Cardiovascular: Regular rate and rhythm. No edema appreciated Respiratory: Normal respirations, no respiratory distress appreciated Abdomen/GI: Non distended Back: Normal ROM Skin: General appearance color normal MS/ Extremity: Moves all extremities, no obvious deformities appreciated, no edema noted to the lower extremities Neuro: Awake and alert Psych: Behavior is normal, Mood is normal, Patient is cooperative and pleasant 17:12 ECG was reviewed by the Attending Physician. [facility] Vital Signs: 14:31 BP 127 / 68; Pulse 100; Resp 16; Temp 98.4; Pulse Ox 100% on R/A; Weight 45.36 kg; hb Height 5 ft. 1 in. (154.94 cm); Pain 7/10; 15:57 BP 117 / 84; Pulse 65; Resp 15; Pulse Ox 100% ; bp 17:28 BP 121 / 74; Pulse 73; Resp 17; Pulse Ox 100% ; bp 14:31 Body Mass Index 18.89 (45.36 kg, 154.94 cm) hb MDM: 14:42 Patient medically screened. [facility] 17:13 Data reviewed: vital signs, nurses notes. Counseling: I had a detailed discussion with danielle the patient and/or guardian regarding: the historical points, exam findings, and any diagnostic results supporting the discharge/admit diagnosis, lab results, radiology results, the need for outpatient follow up, to return to the emergency department if symptoms worsen or persist or if there are any questions or concerns that arise at home. ED course: Patient states feeling much better. Advised to follow up with pcp for reevaluation. Patient understood and agrees with the plan of care. . 03/18 14:49 Order name: Basic Metabolic Panel; Complete Time: 16:58 [facility] 03/18 14:49 Order name: CBC with Diff; Complete Time: 15:36 [facility] 03/18 14:49 Order name: LFT's; Complete Time: 16:58 [facility] 03/18 14:49 Order name: Magnesium; Complete Time: 16:58 [facility] 03/18 14:49 Order name: NT PRO-BNP; Complete Time: 16:58 [facility] 03/18 14:49 Order name: PT-INR; Complete Time: 15:24 [facility] 03/18 14:49 Order name: Troponin HS; Complete Time: 16:58 [facility] 03/18 14:49 Order name: XRAY Chest (1 view); Complete Time: 16:58 [facility] 03/18 14:49 Order name: EKG; Complete Time: 14:50 [facility] 03/18 14:49 Order name: Cardiac monitoring; Complete Time: 15:24 [facility] 03/18 14:49 Order name: EKG - Nurse/Tech; Complete Time: 15:24 [facility] 03/18 14:49 Order name: IV Saline Lock; Complete Time: 15:24 [facility] 03/18 14:49 Order name: Labs collected and sent; Complete Time: 15:24 [facility] 03/18 14:49 Order name: O2 Per Protocol; Complete Time: 15:24 [facility] 03/18 14:49 Order name: O2 Sat Monitoring; Complete Time: 15:24 [facility] EC:12 Rate is 62 beats/min. Rhythm is regular. QRS [place] is Normal. ME interval is shortened. m QRS interval is normal. QT interval is normal. No Q waves. T waves are Normal. No ST changes noted. Reviewed by me. Administered Medications: 15:24 Drug: Lactated Ringers Solution 1000 ml Route: IV; Rate: 1000 bolus; Site: right bp antecubital; 17:52 Follow up: IV Status: Completed infusion; IV Intake: 1000ml bp Disposition Summary: 03/18/22 17:15 Discharge Ordered Location: Home [facility] Condition: Stable [facility] Diagnosis - Syncope Near jmm Followup: [facility] - With: Private Physician - When: 2 - 3 days - Reason: Recheck today's complaints, Continuance of care, Re-evaluation by your physician Discharge Instructions: - Discharge Summary Sheet [facility] - Near-Syncope [facility] Forms: - Medication Reconciliation Form [facility] - Thank You Letter [facility] - Antibiotic Education [facility] - Work release form [facility] - Prescription Opioid Use [facility] Addendum: 03/20/2022 15:27 STAFF ATTESTATION STATEMENT: I was immediately available onsite in the emergency s d2 department for consultation in the care of this patient. I did not see or examine this patient. Lilly Waldrop MD. Signatures: Dispatcher [employer] EDJames Murray PA PA jmm Baxter, Heather, RN Gustavo Nguyen, RN Lilly Edwards MD MD sd2
--- NOTE | 2022-03-18 17:15 | ER ---
Nurse's Notes [facility] Name: Sarah Brunner Age: 26 yrs Sex: Female : 1995 Arrival Date: 03/18/2022 Time: 14:21 Bed 14 Private MD: Diagnosis: Syncope Near Presentation: 03/18 14:31 Chief complaint: Lower abdominal pain and back pain x 2 days, reports pain is r/t hb chronic constipation. Coronavirus screen: At this time, the client does not indicate any symptoms associated with coronavirus-19. Ebola Screen: No symptoms or risks identified at this time. Initial Sepsis Screen:. Risk Assessment: Do you want to hurt yourself or someone else? Patient reports no desire to harm self or others. Onset of symptoms was March 18, 2022. 14:31 Method Of Arrival: Wheelchair hb 14:31 Acuity: VIC 3 hb 17:51 Initial Sepsis Screen: Does the patient meet any 2 criteria? No. Patient's initial bp sepsis screen is negative. Does the patient have a suspected source of infection? No. Patient's initial sepsis screen is negative. Triage Assessment: 14:50 General: Appears in no apparent distress. uncomfortable, Behavior is cooperative, bp appropriate for age, anxious. Pain: Complains of pain in abdomen. EENT: No deficits noted. Neuro: No deficits noted. Cardiovascular: No deficits noted. Respiratory: No deficits noted. GI: Reports lower abdominal pain, constipation. : No signs and/or symptoms were reported regarding the genitourinary system. Derm: No deficits noted. Musculoskeletal: Circulation, motion, and sensation intact. Range of motion: intact in all extremities. Historical: - Allergies: 14:33 No Known Allergies; hb - PSHx: 14:33 back; left foot hardware; hb - Immunization history:: Adult Immunizations up to date. - Social history:: Smoking status: Patient denies any tobacco usage or history of. Screenin:00 Abuse screen: Denies threats or abuse. Denies injuries from another. Nutritional bp screening: No deficits noted. Tuberculosis screening: No symptoms or risk factors identified. Fall Risk None identified. Assessment: 14:50 General: SEE TRIAGE NOTE. bp 15:57 Neuro: Level of Consciousness is awake, alert, obeys commands, Gait is steady. bp 17:29 Reassessment: No changes from previously documented assessment. Patient and/or family bp updated on plan of care and expected duration. Pain level reassessed. 17:51 Reassessment: PT D/C HOME AMBULATORY WITH FAMILY. bp Vital Signs: 14:31 BP 127 / 68; Pulse 100; Resp 16; Temp 98.4; Pulse Ox 100% on R/A; Weight 45.36 kg; hb Height 5 ft. 1 in. (154.94 cm); Pain 7/10; 15:57 BP 117 / 84; Pulse 65; Resp 15; Pulse Ox 100% ; bp 17:28 BP 121 / 74; Pulse 73; Resp 17; Pulse Ox 100% ; bp 14:31 Body Mass Index 18.89 (45.36 kg, 154.94 cm) hb ED Course: 14:21 Patient arrived in ED. as 14:33 Triage completed. hb 14:33 Arm band placed on. hb 14:37 James Muniz PA is PHCP. [facility] 14:37 Lilly Waldrop MD is Attending Physician. [facility] 14:39 Gustavo Anaya, MATHEW is Primary Nurse. bp 15:00 Patient has correct armband on for positive identification. Bed in low position. Call bp light in reach. Side rails up X2. Adult w/ patient. 15:15 Inserted saline lock: 20 gauge in right forearm, using aseptic technique. Blood bp collected. 16:34 XRAY Chest (1 view) In Process Unspecified. EDMS 17:51 No provider procedures requiring assistance completed. IV discontinued, intact, bp bleeding controlled, No redness/swelling at site. Pressure dressing applied. Administered Medications: 15:24 Drug: Lactated Ringers Solution 1000 ml Route: IV; Rate: 1000 bolus; Site: right bp antecubital; 17:52 Follow up: IV Status: Completed infusion; IV Intake: 1000ml bp Medication: 17:51 VIS not applicable for this client. bp Intake: 17:52 IV: 1000ml; Total: 1000ml. bp Outcome: 17:15 Discharge ordered by . [facility] 17:51 Discharged to home ambulatory. bp 17:51 Condition: stable 17:51 Discharge instructions given to patient, Instructed on discharge instructions, follow up and referral plans. Demonstrated understanding of instructions, follow-up care. 17:52 Patient left the ED. bp Signatures: Dispatcher [employer] EDMS Flavio James, PA PA jmm Edgardo, Naila as Narvaez, Soledad, RN RN hb Gustavo Anaya, RN RN bp
--- NOTE | 2022-03-19 15:56 | EKG ---
Test Date: 2022-03-18 Test Time: 15:04:46 Machinist Wood: NIKO MEASUREMENT RESULTS: Intervals: Rate: 62 MS: 100 QRSD: 86 QT: 394 QTc: 399 [place]: P: 47 MS: 100 QRS: 80 T: 68 INTERPRETIVE STATEMENTS: Sinus rhythm with short MS Otherwise normal ECG No previous ECG available for comparison Electronically Signed On 03-19-22 15:54:28 CDT by Dg Kapoor
[2022-03-20 02:51] VITALS: O2SAT 100
[2022-03-20 03:03] VITALS: BP 127/68; TEMP 98.4
== END 2022-03-18 17:52 | disposition home or self-care (01) ==
LOC: ER 14:20
DX: R55 Syncope and collapse (principal)
CPT/HCPCS: 36415; 71045; 80048; 80076; 83735; 83880; 84484; 85025; 85610; 93005; 96360; 96361; 99284; J7120

== ENCOUNTER 2022-03-26 17:17 | Emergency (ER) | payer SELFPAY ==
--- OUTSIDE RECORDS SUMMARY | 2022-03-26 18:31 | XMS REPORT | Continuity of Care Document ---
:1995 Author Organization [facility] t Address [address] [place] [address] Care Team Providers Name Role Phone ENRIQUE OBRIEN Primary Care Physician Unavailable kina Attending Clinician Unavailable RAIN GARCIA Attending Clinician Unavailable ENRIQUE OBRIEN Attending Clinician Unavailable Silvia Infante Attending Clinician [phone] Brittanie Black Attending Clinician Unavailable DEION MAY [...] Date S zeinab Sliding Fee - P [id number] 2020 2021 [facility] 00:00:00 00:00:00 Sliding Fee - S [id number] 2020 2021 [facility] 00:00:00 00:00:00 Sliding Fee - CI [id number] 2020 2021 [facility] 00:00:00 00:00:00 [...] Stop Date Source Other No Known Problems [facility] Paternal aunt No Known Problems [facility] Paternal No Known Problems [facility] Paternal No Known Problems [facility] Paternal uncle No Known Problems [facility] Natural sister No Known Problems [facility] Family member ADD / ADHD [facility] Family member Bipolar disorder [facility] Family member Dementia [facility] Family member Depression [facility] Family member Drug abuse [facility] Family member OCD [facility] Family member Paranoid behavior [facility] Family member [facility]izophrenia [facility] Family member Seizures [facility] Family member Self-Injurious [facility] Family member Suicide Attempts [facility] Natural brother No Known Problems [facility] Cousin No Known Problems [facility] Natural father Alcohol abuse [facility] Maternal aunt No Known Problems [facility] Maternal No Known Problems [facility] Maternal No Known Problems [facility] Maternal uncle No Known Problems [facility] Natural mother Anxiety disorder [facility] Social History Social Habit Start Date Stop [...] Hospital Tobacco use and 2020-08-09 2020-08-09 Smokeless [facility] exposure 00:00:00 00:00:00 tobacco non-user Hospital Sex Assigned At [birth year] [facility] 00:[facility]00 Hospital Smoking Status Start Date Stop Date Source Never smoked tobacco [facility] Medications Ordered Filled Start Stop [...] medication st 17:[facility] No known No No known Metho di medications 2-[address] 17:36: [facility] 08 l Immunizations Ordered Immunization Filled Immunization Date Status Commen ts Source Name Name PPD Test 2020-08-15 Completed [facility] 00:00:00 Hospital PPD Test 2020-08-15 Completed [facility] 00:00:00 Hospital Vital Signs Vital Name Observation Time Observation Value Comments Source blood pressure, 2021-02-09 09:34:59 106 mm[Hg] [facility] systolic Health pulse rate 2021-02-09 09:34:59 56 /[facility], 2021-02-09 09:34:59 68 mm[Hg] [facility] diastolic [facility] blood pressure, 2020-10-26 11:24:21 70 mm[Hg] [facility] diastolic [facility] blood pressure, 2020-10-26 11:24:21 113 mm[Hg] [facility] oxygen saturation, 2020-10-26 11:24:21 98 /min [facility] oximetry Health pulse rate 2020-10-26 11:24:21 64 /min [facility] temperature site 2020-10-26 11:24:21 temporal [facility] temperature E&M 2020-10-26 11:24:21 97.2 [degF] [facility] weight E&M 2020-10-26 11:24:21 127.25 [lb_av] [facility] weight in kilograms 2020-10-26 11:24:21 57.84 kg L [facility] E& Health height in 2020-10-26 11:24:21 154.94 [facility] Procedures Procedure Date / Time Performed Performing Clinician Sourc e PPD - In House 2020-10-26 11:36:56 Jfef Cruz [facility] Health Vaccines Ordered - 2020-10-26 11:27:00 [facility] Consent/Declination Forms Encounters Start End Encounter Admission Attending Care Care Encounter Source Date/Time Date/Time Type Type Clinicians Facility Department ID 2021-12-[address] [facility] [id number] [facility] 20:04:50 [id number] [facility] 2021-06-22 2021-06-22 Outpatient [facility] [id number] [address] [place] [address] 00:00:00 00:00:00 [facility] 2021-04-13 2021-04-13 Outpatient LE, [facility] [id number] [place] 06:26:41 16:20:28 Health 2021-03-02 2021-03-02 Outpatient LE, [facility] [id number] [place] 09:44:42 11:02:28 Health 2021-02-10 2021-02-10 Outpatient CAMILLE, [facility] [id number] [place] 00:00:00 00:00:00 [facility] 2021-02-09 2021-02-[address] [facility] Encounter/ [facility] 00:00:00 00:00:00 Visit Brittanie Black [id number] [facility] [id number] [facility] 2021-01-13 2021-01-13 [facility] [id number] [place] 11:17:18 11:24:03 [facility] 2021-01-13 2021-01-13 [facility] [id number] [place] 10:01:53 10:40:57 [facility] 2021-01-13 2021-01-13 Outpatient CAMILLE, [facility] [id number] [place] 00:00:00 00:00:00 [facility] 2021-01-12 2021-01-12 Outpatient CAMILLE, [facility] [id number] [place] 00:00:00 00:00:00 [facility] 2021-01-06 2021-01-11 Inpatient ABID, [facility] [id number] [place] 17:41:00 13:00:00 [facility] 2021-01-05 2021-01-05 [facility] [id number] [place] 14:56:51 23:59:00 [facility] 2021-01-05 2021-01-05 Emergency [facility] [id number] [place] 13:56:00 14:40:00 [facility] 2020-12-08 2020-12-08 Outpatient STARK, [facility] [id number] [place] 06:36:26 09:31:41 [facility] 2020-12-07 2020-12-07 Outpatient EVELYN, [facility] [id number] [place] 00:00:00 00:00:00 [facility] 2020-08-11 2020-08-25 Inpatient MARIA DE JESUS, [facility] [id number] [place] 00:00:00 00:00:00 JOSH [address] 2020-08-09 2020-08-11 Emergency ALLEN, [facility] 064 [id number] [place] 00:00:00 00:00:00 [facility] [address] Results Test Description Test Time Test Comments Results Result Comments Source PPD results in mm 2020-10-28 08:46:32 Test Item Value Reference Range Interpretation Comme nts PPD results in mm (test code = 191488) 0 mm [facility] (COVID-19) RNA [Presence] in Respiratory specimen by GWEN with probe [id number] 19:08:37 Test Item Value Reference Range Interpretation Comments SARS-CoV-2 (COVID-19) RNA Not detected Not-Detected [Presence] in Respiratory specimen by GWEN with probe detection (test code = 71405-4)
[2022-03-26 18:37] LABS: Urine Blood Negative (Negative); Urine Glucose Negative (Negative); Urine Protein Negative (Negative); Urine pH 8.5 (5.0-7.0)
[2022-03-26 18:47] LABS: Absolute Lymphocytes (CBC) 2.2 K/uL (0.7-4.9); Lymphocytes % 35.6 % (15.3-44.8); MCV 87.4 fL (80-100); MPV 7.7 fL (7.6-11.3); RBC Red Blood Cell Count 4.69 M/uL (3.86-4.86)
[2022-03-26 18:56] LABS: Barbiturates NEGATIVE (NEGATIVE); Benzodiazepines NEGATIVE (NEGATIVE); Cocaine NEGATIVE (NEGATIVE); METHAMPHETAM NEGATIVE (NEGATIVE); Methadone NEGATIVE (NEGATIVE); Opiates NEGATIVE (NEGATIVE); Phencyclidine NEGATIVE (NEGATIVE); THC Cannibis POSITIVE (NEGATIVE)
[2022-03-26 18:57] LABS: Urine Bacteria <20 /HPF (<20); Urine RBC <5 /HPF (None Seen)
[2022-03-26 19:10] LABS: Albumin 4.5 g/dL (3.4-5.0); Bilirubin Total 0.5 mg/dL (0.2-1.0); Magnesium 2.2 mg/dL (1.8-2.4); Potassium 4.1 mmol/L (3.5-5.1); Protein, Total 8.1 g/dL (6.4-8.2)
--- NOTE | 2022-03-26 20:49 | RAD REPORT ---
EXAM DESCRIPTION: CT - Abdomen Pelvis W Contrast - 03/26/2022 8:28 pm CLINICAL HISTORY: abdominal pain COMPARISON: <Comparisons> TECHNIQUE: Biphasic, helical CT imaging of the abdomen and pelvis was performed following 100 ml non -ionic IV contrast. No oral contrast administered. All CT scans are performed using dose optimization technique as appropriate and may include automated exposure control or mA/KV adjustment according to patient size. FINDINGS: No suspicious findings in the lung bases. The liver, spleen, and pancreas show no suspicious findings. Gallbladder and biliary tree are also wi thout suspicious finding. Symmetric renal function is seen with no hydronephrosis or suspicious renal mass. No pyelonephritis o r acute parenchymal process. No bladder abnormalities. No adrenal abnormalities. No uterine or left ovarian abnormality identified. Right ovary more difficult to evaluate. There flui d-filled nondilated small bowel loops in the right adnexa that could mask ovarian cyst. There does ap pear to be a 15 millimeter involuting right ovarian cyst. There may be another 2.9 centimeter cyst. P hysiologic quantity of free fluid is present in the cul de sac. No omental thickening or other findin gs of carcinomatosis. No dilated bowel loops or bowel wall thickening. Moderate stool volume is present filling the colon. No suspicion for appendicitis. No free air, pneumatosis or focal inflammatory stranding. No hernia, mass or bulky lymphadenopathy. No suspicious bony findings. IMPRESSION: Contrast enhanced CT abdomen and pelvis showing no acute or emergent finding. Uterus and left ovary are unremarkable. Right ovary is more difficult to evaluate due to fluid-filled small bowel loops in the right adnexa. At least one 15 mm involuting right ovarian cyst is present.
--- NOTE | 2022-03-26 21:32 | RAD REPORT ---
EXAM DESCRIPTION: US - Abdomen Exam Limited - 03/26/2022 9:21 pm CLINICAL HISTORY: ABD PAIN COMPARISON: Abdomen Pelvis W Contrast dated 03/26/2022 FINDINGS: No mobile gallstones are identified. There is a minimal amount of sludge. A 3 mm nonshadow ing echogenic adherent focus in the mid gallbladder is believed to be a polyp rather than adherent st one or tumefactive sludge. There is no wall thickening or pericholecystic fluid. No common duct stone or biliary tree dilatation identified. IMPRESSION: No gallstones are seen. A small amount of sludge identifiable. No other acute or significant gallbladder or biliary tree finding.
--- NOTE | 2022-03-26 22:12 | ER ---
Nurse's Notes [facility] Name: Sarah Brunner Age: 26 yrs Sex: Female : 1995 Arrival Date: 03/26/2022 Time: 17:19 Bed 9 Private MD: Diagnosis: Abdominal pain, unspecified;Dorsalgia, unspecified Presentation: 03/26 17:28 Chief complaint: Patient states: "I need some gallbladder testing and if that's not it, hb I am gonna have to go to [place] for maybe ovarian cancer screening, I am down to 98 pounds, I can't eat, I have body aches, I only poop if I drink pineapple juice, I need answers, it has been years. My right hand and wrist has been hurting more, lately I can't even work.". Coronavirus screen: At this time, the client does not indicate any symptoms associated with coronavirus-19. Ebola Screen: No symptoms or risks identified at this time. Risk Assessment: Do you want to hurt yourself or someone else? Patient reports no desire to harm self or others. Onset of symptoms was March 26, 2022. 17:28 Method Of Arrival: Ambulatory hb 17:28 Acuity: VIC 3 hb 18:06 Initial Sepsis Screen: Does the patient meet any 2 criteria? No. Patient's initial tw2 sepsis screen is negative. Does the patient have a suspected source of infection? No. Patient's initial sepsis screen is negative. 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 - Social history:: Smoking status: Patient denies any tobacco usage or history of. Screenin:06 Abuse screen: Denies threats or abuse. Nutritional screening: No deficits noted. tw2 Tuberculosis screening: No symptoms or risk factors identified. Fall Risk None identified. Assessment: 18:04 Reassessment: Patient appears in no apparent distress at this time. provider NATO Spann tw2 performing assessment at this time. General: Appears in no apparent distress. slender, Behavior is calm, cooperative, appropriate for age. Pain: Complains of pain in abdomen. Neuro: Level of Consciousness is awake, alert, obeys commands, Oriented to person, place, time, situation. GI: na na Reports lower abdominal pain. Musculoskeletal: Range of motion: intact in all extremities. 19:01 Reassessment: Patient appears in no apparent distress at this time. Patient and/or tw2 family updated on plan of care and expected duration. Pain level reassessed. Patient is alert, oriented x 3, equal unlabored respirations, skin warm/dry/pink. 21:00 General: Pt resting comfortably, awaiting results for disposition. No questions, no kb3 needs at this time. Call light within reach. Vital Signs: 17:28 BP 141 / 93; Pulse 75; Resp 16; Temp 97.7; Pulse Ox 100% on R/A; Weight 44.45 kg; hb Height 5 ft. 1 in. (154.94 cm); Pain 0/10; 19:02 BP 119 / 75; Pulse 69; Resp 17; Pulse Ox 100% on R/A; tw2 22:28 BP 117 / 78; Pulse 89; Resp 20; Pulse Ox 100% ; kb3 17:28 Body Mass Index 18.52 (44.45 kg, 154.94 cm) hb ED Course: 17:19 Patient arrived in ED. rg4 17:21 Justin Roger PA is PHCP. cp 17:21 Jorge Mendez MD is Attending Physician. cp 17:31 Triage completed. hb 17:31 Arm band placed on. hb 18:06 Adult w/ patient. tw2 18:28 Wilma Chi, RN is Primary Nurse. kb3 18:30 Inserted saline lock: 22 gauge in right antecubital area, using aseptic technique. tw2 Blood collected. 18:32 EKG done, by ED staff, reviewed by Justin DUTTON. dh3 18:38 Urine Microscopic Only Sent. kb3 20:30 CT Abd/Pelvis - IV Contrast Only In Process Unspecified. EDMS 21:23 US Abdomen Limited: gallbladder In Process Unspecified. EDMS 22:08 Dewayne Tony MD is Referral Physician. cp 22:29 No provider procedures requiring assistance completed. IV discontinued, intact, kb3 bleeding controlled, No redness/swelling at site. Administered Medications: No medications were administered Medication: 18:06 VIS not applicable for this client. tw2 Outcome: 21:00 Discharged to home ambulatory. kb3 21:00 Condition: stable 21:00 Discharge instructions given to patient, Instructed on discharge instructions, follow up and referral plans. medication usage, Demonstrated understanding of instructions, follow-up care, medications, Prescriptions given X 2. 22:09 Discharge ordered by . tru 22:31 Patient left the ED. kb3 Signatures: Dispatcher [employer] EDMS Justin Roger PA PA cp Baxter, Heather, RN RN Jessie Castillo RN RN 2 Mercedez Barrera 4 Roselyn Raymond [facility] Wilma Chi, RN RN kb3
--- NOTE | 2022-03-26 22:12 | EDPHYS ---
Physician Documentation [facility] Name: Sarah Brunner Age: 26 yrs Sex: Female : 1995 Arrival Date: 03/26/2022 Time: 17:19 Bed 9 Private MD: ED Physician Jorge Mendez HPI: 03/26 18:20 This 26 yrs old Female presents to ER via Ambulatory with complaints of cp Abdominal Pain, Back Pain, Weakness, Dizziness, Constipation. 18:20 The patient presents with abdominal pain in the upper abdomen. Onset: The cp symptoms/episode began/occurred 4 month(s) ago. The symptoms radiate to back. Associated signs and symptoms: Pertinent positives: anorexia, constipation, dizziness, upper and lower extremity pain, Pertinent negatives: blood in stools, chest pain, diarrhea, dysuria, fever. The symptoms are described as waxing/waning. Modifying factors: the symptoms are aggravated by food. Severity of pain: in the emergency department the pain is unchanged despite home interventions. 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 - Social history:: Smoking status: Patient denies any tobacco usage or history of. ROS: 18:25 Constitutional: Positive for weight loss, Negative for body aches, chills, fever, poor cp PO intake. 18:25 Eyes: Negative for injury, pain, redness, and discharge. cp 18:25 ENT: Negative for drainage from ear(s), ear pain, sore throat, difficulty swallowing, difficulty handling secretions. 18:25 Cardiovascular: Negative for chest pain, edema, palpitations. 18:25 Respiratory: Negative for cough, shortness of breath, wheezing. 18:25 Abdomen/GI: Positive for abdominal pain, constipation, Negative for vomiting, diarrhea, black/tarry stool, rectal bleeding. 18:25 Back: Positive for radiated pain. 18:25 : Negative for urinary symptoms. 18:25 Neuro: Positive for dizziness, weakness, Negative for altered mental status, headache, syncope. 18:25 All other systems are negative. Exam: 18:30 Constitutional: The patient appears in no acute distress, alert, awake, cp non-diaphoretic, non-toxic, well developed, well nourished. 18:30 Head/Face: Normocephalic, atraumatic. cp 18:30 Eyes: Periorbital structures: appear normal, Conjunctiva: normal, no exudate, no injection, Sclera: no appreciated abnormality, Lids and lashes: appear normal, bilaterally. 18:30 ENT: External ear(s): are unremarkable, Nose: is normal, Mouth: Lips: moist, Oral mucosa: pink and intact, moist, Posterior pharynx: Airway: no evidence of obstruction, patent. 18:30 Neck: ROM/movement: is normal, is supple, without pain, no range of motions limitations. 18:30 Chest/axilla: Inspection: normal. 18:30 Cardiovascular: Rate: normal, Rhythm: regular. 18:30 Respiratory: the patient does not display signs of respiratory distress, Respirations: normal, no use of accessory muscles, no retractions, labored breathing, is not present, Breath sounds: are clear throughout, no decreased breath sounds, no stridor, no wheezing. 18:30 Abdomen/GI: Inspection: abdomen appears normal, Bowel sounds: active, all quadrants, Palpation: soft, in all quadrants, moderate abdominal tenderness, in the epigastric area, right upper quadrant and left upper quadrant, rebound tenderness, is not appreciated, voluntary guarding, is not appreciated, involuntary guarding, is not appreciated. 18:30 Back: pain, that is mild, of the mid back area, CVA tenderness, is absent. 18:30 Skin: cellulitis, is not appreciated, no rash present. 18:30 Neuro: Orientation: to person, place \T\ time. Mentation: is normal, Motor: moves all fours, strength is normal, Sensation: is normal, Gait: is steady, at a normal pace, without difficulty. Vital Signs: 17:28 BP 141 / 93; Pulse 75; Resp 16; Temp 97.7; Pulse Ox 100% on R/A; Weight 44.45 kg; hb Height 5 ft. 1 in. (154.94 cm); Pain 0/10; 19:02 BP 119 / 75; Pulse 69; Resp 17; Pulse Ox 100% on R/A; tw2 22:28 BP 117 / 78; Pulse 89; Resp 20; Pulse Ox 100% ; kb3 17:28 Body Mass Index 18.52 (44.45 kg, 154.94 cm) hb MDM: 18:03 Patient medically screened. cp 19:00 Differential diagnosis: cholecystitis, Cholelithiasis, non-specific abd pain, cp pancreatitis, Peptic Ulcer Disease, Perf. Duodenal Ulcer, Perf. Gastric Ulcer, Ureterolithiasis, urinary tract infection. 22:09 Data reviewed: vital signs, nurses notes, lab test result(s), radiologic studies, CT cp scan, ultrasound. 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 Special discussion: Based on the patient's Hx, exam, and Dx evaluation, there is no indication for emergent surgery or inpatient Tx. It is understood by the patient/guardian that if the Sx's persist or worsen they need to return immediately for re-evaluation. 03/26 18:10 Order name: CBC with Diff; Complete Time: 19:14 cp 03/26 18:10 Order name: CMP; Complete Time: 19:14 cp 03/26 19:14 Interpretation: Reviewed. 03/26 18:10 Order name: Lipase; Complete Time: 19:14 cp 03/26 18:10 Order name: Urine Microscopic Only; Complete Time: 19:14 cp 03/26 18:11 Order name: UDS; Complete Time: 19:14 03/26 19:14 Interpretation: THC POSITIVE; Reviewed. 03/26 18:11 Order name: Magnesium; Complete Time: 19:14 cp 03/26 18:10 Order name: IV Saline Lock; Complete Time: 18:33 cp 03/26 18:10 Order name: Labs collected and sent; Complete Time: 18:33 cp 03/26 18:10 Order name: Urine Dipstick-Ancillary (obtain specimen); Complete Time: 18:38 cp 03/26 18:11 Order name: EKG; Complete Time: 18:12 cp 03/26 18:37 Order name: Urine Dipstick-Ancillary; Complete Time: 19:14 EDMS 03/26 18:39 Order name: Urine --Ancillary (enter results); Complete Time: 20:06 dh3 03/26 19:15 Order name: CT Abd/Pelvis - IV Contrast Only; Complete Time: 20:55 cp 03/26 20:57 Order name: US Abdomen Limited: gallbladder; Complete Time: 22:01 cp 03/26 22:01 Interpretation: Report reviewed. cp 03/26 18:10 Order name: Urine Test (obtain specimen); Complete Time: 18:38 cp 03/26 18:11 Order name: EKG - Nurse/Tech; Complete Time: 18:33 cp Administered Medications: No medications were administered Disposition Summary: 03/26/22 22:09 Discharge Ordered Location: Home cp Problem: an ongoing problem cp Symptoms: have improved cp Condition: Stable cp Diagnosis - Abdominal pain, unspecified cp - Dorsalgia, unspecified cp Followup: cp - With: Dewayne Tony MD - When: 2 - 3 days - Reason: Recheck today's complaints Discharge Instructions: - Abdominal Pain, Adult cp - Constipation, Adult cp - Discharge Summary Sheet tw2 - Musculoskeletal Pain cp Forms: - Work release form tw2 - Medication Reconciliation Form cp - Thank You Letter cp - Antibiotic Education cp - Prescription Opioid Use cp Prescriptions: - Protonix 40 mg Oral Tablet - take 1 tablet by ORAL route once daily; 30 tablet; Refills: 0, Product cp Selection Permitted - Zofran 4 mg Oral Tablet - take 1 tablet by ORAL route every 12 hours As needed; 20 tablet; Refills: 0, cp Product Selection Permitted Signatures: Dispatcher [employer] EDJustin Knapp PA PA cp Soledad Narvaez RN RN
--- NOTE | 2022-03-27 14:09 | EKG ---
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
[2022-03-28 21:56] VITALS: BP 117/78; O2SAT 100
[2022-03-28 22:49] VITALS: TEMP 97.7
== END 2022-03-26 22:31 | disposition home or self-care (01) ==
LOC: ER 17:17
DX: R10.10 Upper abdominal pain, unspecified (principal); M54.9 Dorsalgia, unspecified
CPT/HCPCS: 36415; 74177; 76705; 80053; 80307; 81003; 81015; 81025; 83690; 83735; 85025; 93005; 99284; Q9967

== ENCOUNTER 2022-05-29 11:25 | Emergency (ER) | payer SELFPAY ==
--- OUTSIDE RECORDS SUMMARY | 2022-05-29 11:30 | XMS REPORT | Continuity of Care Document ---
:1995 Author Organization [facility] t Address [address] [place] [address] Care Team Providers Name Role Phone ENRIQUE OBRIEN Primary Care Physician Unavailable RAIN GARCIA Attending Clinician Unavailable ENRIQUE OBRIEN Attending Clinician Unavailable Silvia Infante Attending Clinician [phone] Brittanie Black Attending Clinician Unavailable DEION MAY [...] Expiration Date S zeinab Sliding Fee - CI [id number] 2020 2021 [facility] 0 - 00:00:00 00:00:00 [facility] Health Sliding Fee - 11 [id number] 2020 2021 [facility] 0 - 00:00:00 00:00:00 [facility] Health Problems Condition Condition Condition Status Onset Resolution Last Treating Co mments Source Name Details Category Date Date Treatment Clinician Date Screening Condition Active 2020-10-26 Jose Cast for 10-26 11:41:51 [facility] 00:00: ty TB [...] Stop Date Source Other No Known Problems [facility] Paternal aunt No Known Problems [facility] Paternal No Known Problems [facility] Paternal No Known Problems [facility] Paternal uncle No Known Problems [facility] Natural sister No Known Problems [facility] Family member ADD / ADHD [facility] Family member Bipolar disorder [facility] Family member Dementia [facility] Family member Depression [facility] Family member Drug abuse [facility] Family member OCD [facility] Family member Paranoid behavior [facility] Family member Schizophrenia [facility] Family member Seizures [facility] Family member [facility]Inj[facility] member Suicide Attempts [facility] Natural brother No Known Problems [facility] Cousin No Known Problems [facility] Natural father Alcohol abuse [facility] Maternal aunt No Known Problems [facility] Maternal No Known Problems [facility] Maternal No Known Problems [facility] Maternal uncle No Known Problems [facility] Natural mother Anxiety disorder [facility] Social History Social Habit Start Date Stop Date Quantity Comments Source tuberculosis 2020-10-26 2020-10-26 No [facility] exposure risk 11:24:21 11:24:21 Health is there any chance 2020-10-26 2020-10-26 [facility] that you could be 11:24:21 11:24:21 Health ? if the patient is 2020-10-26 2020-10-26 No [facility] using/has used a 11:24:21 11:24:21 Health vaping item, Current, Former, Never Used, Not asked bone marrow 2020-10-26 2020-10-26 No [facility] transplant, hx of 11:24:21 11:24:21 Health time of call 2020-10-25 2020-10-25 10/25/2020 11:04 [...] Hospital Tobacco use and 2020-08-09 2020-08-09 Smokeless [facility] exposure 00:00:00 00:00:00 tobacco non-user Hospital Sex Assigned At [birth year] [facility] 00:00[facility]00 [facility]:00:00 Hospital Smoking Status Start Date Stop Date Source Never smoked tobacco [facility] Medications Ordered Filled Start Stop [...] Source Name Name PPD Test 2020-08-15 Completed [facility] 00:00:00 Hospital PPD Test 2020-08-15 Completed [facility] 00:00:00 Hospital PPD Test 2020-08-15 Completed [facility] 00:00:00 Hospital Vital Signs Vital Name Observation Time Observation Value Comments Source pulse rate 2021-02-09 09:34:59 56 /min [facility] blood pressure, 2021-02-09 09:34:59 68 mm[Hg[facility] blood pressure, 2021-02-09 09:34:59 106 mm[Hg] [facility] blood pressure, 2020-10-26 11:24:21 70 mm[Hg] [facility] blood pressure, 2020-10-26 11:24:21 113 mm[Hg] [facility] oxygen saturation, 2020-10-26 11:24:21 98 /min [facility] oximetry Health pulse rate 2020-10-26 11:24:21 64 /min [facility] temperature site 2020-10-26 11:24:21 temporal [facility] temperature E&M 2020-10-26 11:24:21 97.2 [degF] [facility] weight E&M 2020-10-26 11:24:21 127.25 [lb_av] [facility] weight in kilograms 2020-10-26 11:24:21 57.84 kg L [facility] E& Health height in 2020-10-26 11:24:21 154.94 cm [facility] centimeters E&M Health Procedures Procedure Date / Time Performed Performing Clinician Sourc e PPD - In House 2020-10-26 11:36:56 Jeff Cruz Com[facility] Health Vaccines Ordered - 2020-10-26 11:27:00 Jeff Cruz [employer] [facility] Consent/Declination Forms Encounters Start End Encounter Admission Attending Care Care Encounter Source Date/Time Date/Time Type Type Clinicians Facility Department ID 2021-06-22 2021-06-[address] [facility] [id number] [address] [place] [address] 00:00:00 00:00:00 Health 2021-04-13 2021-04-13 Outpatient LE, [facility] [id number] [place] 06:26:41 16:20:28 Health 2021-03-02 2021-03-02 Outpatient LE, [facility] [id number] [place] 09:44:42 11:02:28 Health 2021-02-10 2021-02-10 Outpatient CAMILLE, [facility] [id number] [place] 00:00:00 00:00:00 [facility] 2021-02-09 2021-02-09 Office Silvia Infante [facility] Encounter/ [facility] 00:00:00 00:00:00 Visit Brittanie Black [id number] [facility] [id number] [facility] 2021-01-13 2021-01-13 Outpatient CAMILLE, [facility] [id number] [place] 11:17:18 11:24:03 [facility] 2021-01-13 2021-01-13 Outpatient CAMILLE, [facility] [id number] [place] 10:01:53 10:40:57 [facility] 2021-01-13 2021-01-13 Outpatient CAMILLE, [facility] [id number] [place] 00:00:00 00:00:00 [facility] 2021-01-12 2021-01-12 Outpatient CAMILLE, [facility] [id number] [place] 00:00:00 00:00:00 [facility] 2021-01-06 2021-01-11 Inpatient ABID, [facility] [id number] [place] 17:41:00 13:00:00 [facility] 2021-01-05 2021-01-05 [facility] [id number] [place] 14:56:51 23:59:00 [facility] 2021-01-05 2021-01-05 Emergency [facility] [id number] [place] 13:56:00 14:40:00 [facility] 2020-12-08 2020-12-08 Outpatient STARK, [facility] [id number] [place] 06:36:26 09:31:41 [facility] 2020-12-07 2020-12-07 [facility] [id number] [place] 00:00:00 00:00:[address] [facility] 2020-08-11 2020-08-[address] [id number] [place] 00:00:00 00:00:00 JOSH [address] 2020-08-09 2020-08-11 Emergency SVEMIL, [facility] [id number] [place] 00:00:00 00:00:00 LORY [address] Results Test Description Test Time Test Comments Results Result Comments Source PPD results in mm 2020-10-28 08:46:32 Test Item Value Reference Range Interpretation Comme nts PPD results in mm (test code = 928857) [facility] [Presence] in Respiratory specimen by GWEN with probe [id number] 19:08:37 Test Item Value Reference Range Interpretation Comments SARS-CoV-2 (COVID-19) RNA Not detected Not-Detected [Presence] in Respiratory specimen by GWEN with probe detection (test code = 25642-3) [facility]
[2022-05-29 12:11] LABS: Urine Blood Negative (Negative); Urine Glucose Negative (Negative); Urine Protein Negative (Negative)
--- NOTE | 2022-05-29 12:45 | RAD REPORT ---
EXAM DESCRIPTION: CT - Thorax Con - 05/29/2022 12:33 pm CLINICAL HISTORY: chest pain, trauma COMPARISON: No comparisons FINDINGS: Chest Wall: No suspicious thyroid nodules or pathologic lymphadenopathy. Lungs: No acute abnormality. Pleura: No significant effusions or pneumothorax. Mediastinum/solis: No pathologic lymphadenopathy. Pulmonary arteries/Aorta: Limited evaluation without contrast. No aortic aneurysm. Heart: No significant pericardial effusion. Normal heart size. Upper abdomen: No acute abnormality. Bones: No acute abnormality. Fusion hardware in the thoracic spine. This extends from T3 through T12. All CT scans are performed using dose optimization technique as appropriate and may include automated exposure control or mA/KV adjustment according to patient size. IMPRESSION: No evidence of significant trauma to the chest.
--- NOTE | 2022-05-29 13:23 | EDPHYS ---
Physician Documentation [facility] Name: Sarah Brunner Age: 26 yrs Sex: Female : 1995 Arrival Date: 05/29/2022 Time: :28 Bed Waiting Private MD: ED Physician Kb Mares HPI: 05/29 12:54 This 26 yrs old Female presents to ER via Unassigned with complaints of Pain kb From Fall. 13:17 Details of fall: The patient fell from an upright position, while walking. Onset: The kb symptoms/episode began/occurred 2 day(s) ago. Associated injuries: The patient sustained injury to the chest, specifically the left breast, pain with breathing, pain with movement, tenderness. Severity of symptoms: At their worst the symptoms were moderate, in the emergency department the symptoms are unchanged. The patient has not experienced similar symptoms in the past. The patient has not recently seen a physician. Pt reports she was moving a stove on a sangita when she slipped and fell. The sangita and part of the stove fell onto her chest. Reports diffuse chest pain, worse below left breast. 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 - Social history:: Smoking status: Patient denies any tobacco usage or history of. ROS: 12:53 Constitutional: Negative for fever, chills, and weight loss. kb 12:53 Cardiovascular: Positive for chest pain, with cough, with movement. 12:53 All other systems are negative. Exam: 12:53 Constitutional: This is a well developed, well nourished patient who is awake, alert, kb and in no acute distress. Head/Face: Normocephalic, atraumatic. ENT: Moist Mucous membranes Cardiovascular: Regular rate and rhythm with a normal S1 and S2. No gallops, murmurs, or rubs. No pulse deficits. Respiratory: Respirations even and unlabored. No increased work of breathing. Talking in full sentences Abdomen/GI: Soft, non-tender. No distention Skin: Warm, dry with normal turgor. Normal color. MS/ Extremity: Pulses equal, no cyanosis. Neurovascular intact. Full, normal range of motion. Neuro: Awake and alert, GCS 15, oriented to person, place, time, and situation. Moves all extremities. Normal gait. 12:53 Chest/axilla: Inspection: normal, Palpation: tenderness, that is moderate, of the left breast, that totally reproduces the patient's complaints. Vital Signs: 13:28 BP 116 / 72; Pulse 71; Resp 16; Temp 98.9(O); Pulse Ox 98% ; Weight 46.27 kg; Height 5 ss ft. 1 in. (154.94 cm); 13:28 Body Mass Index 19.27 (46.27 kg, 154.94 cm) ss MDM: 11:58 Patient medically screened. kb 12:52 Data reviewed: vital signs, nurses notes. Data interpreted: Pulse oximetry: on room air kb is 100 %. Interpretation: normal. Counseling: I had a detailed discussion with the patient and/or guardian regarding: the historical points, exam findings, and any diagnostic results supporting the discharge/admit diagnosis, radiology results, the need for outpatient follow up, a family practitioner, to return to the emergency department if symptoms worsen or persist or if there are any questions or concerns that arise at home. 05/29 12:11 Order name: Urine Dipstick-Ancillary; Complete Time: 12:36 EDMS 05/29 12:12 Order name: Urine --Ancillary (enter results); Complete Time: 13:05 bd 05/29 11:58 Order name: CT Chest Wo Con; Complete Time: 12:52 kb 05/29 11:58 Order name: Urine Dipstick-Ancillary (obtain specimen); Complete Time: 12:12 kb 05/29 11:58 Order name: Urine Test (obtain specimen); Complete Time: 12:12 kb Administered Medications: No medications were administered Disposition: 19:13 Co-signature as Attending Physician, Kb MIRZA was immediately available on-site ms3 in the Emergency Department for consultation in the care of the patient.. Disposition Summary: 05/29/22 13:22 Discharge Ordered Location: Home kb Condition: Stable kb Diagnosis - Fall on same level from slipping, tripping and stumbling without subsequent kb striking against object - Chest pain, unspecified - chest wall pain kb Followup: kb - With: Emergency Department - When: As needed - Reason: Worsening of condition Followup: kb - With: Private Physician - When: 2 - 3 days - Reason: Recheck today's complaints, Continuance of care, Re-evaluation by your physician Discharge Instructions: - Discharge Summary Sheet kb - Chest Wall Pain, [id number] kb Forms: - Medication Reconciliation Form kb - Thank You Letter kb - Antibiotic Education kb - Prescription Opioid Use kb - Work release form em6 Prescriptions: - Diclofenac Sodium 75 mg Oral tablet,delayed release (DR/EC) - take 1 tablet by ORAL route 2 times per day As needed; 30 tablet; Refills: 0, kb Product Selection Permitted Signatures: Dispatcher [employer] EDMS Candida Blackwell, GABRIEL-C GABRIEL-Leisa Bates, RN RN Kb Gonzalez, DO ms3
--- NOTE | 2022-05-29 13:42 | ER ---
Nurse's Notes [facility] Name: Sarah Brunner Age: 26 yrs Sex: Female : 1995 Arrival Date: 05/29/2022 Time: : Bed Waiting Private MD: Diagnosis: Fall on same level from slipping, tripping and stumbling without subsequent striking against object;Chest pain, unspecified-chest wall pain Presentation: 05/29 13:29 Chief complaint: Patient states: Fell two days ago onto L side/ buttocks. Funmi with ss stove fell onto chest. Coronavirus screen: Client denies travel out of the [place] in the last 14 days. Ebola Screen: Patient denies exposure to infectious person. Patient denies travel to an Ebola-affected area in the 21 days before illness onset. Initial Sepsis Screen: Does the patient meet any 2 criteria? No. Patient's initial sepsis screen is negative. Does the patient have a suspected source of infection? No. Patient's initial sepsis screen is negative. Risk Assessment: Do you want to hurt yourself or someone else? Patient reports no desire to harm self or others. Onset of symptoms was May 27, 2022. 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 - Social history:: Smoking status: Patient denies any tobacco usage or history of. Vital Signs: : BP 116 / 72; Pulse 71; Resp 16; Temp 98.9(O); Pulse Ox 98% ; Weight 46.27 kg; Height 5 ss ft. 1 in. (154.94 cm); 13: Body Mass Index 19.27 (46.27 kg, 154.94 cm) ED Course: : Patient arrived in ED. rg4 11:34 Candida Blackwell FNP-C is PHCP. kb 11:34 Kb Mares DO is Attending Physician. kb 12:35 CT Chest Wo Con In Process Unspecified. EDMS 13:28 Arm band placed on right wrist. ss 13:30 Triage completed. ss 13:41 No provider procedures requiring assistance completed. Patient did not have IV access ss during this emergency room visit. Administered Medications: No medications were administered Outcome: 13:22 Discharge ordered by MD. kb 13:41 Discharged to home ambulatory, with family. ss 13:41 Condition: good 13:41 Discharge instructions given to patient, family, Instructed on discharge instructions, follow up and referral plans. medication usage, Demonstrated understanding of instructions, follow-up care, medications, Prescriptions given X 1. 13:42 Patient left the ED. ss Signatures: Dispatcher [employer] EDMS Candida Blackwell, THIRD MATE-C THIRD MATE-Leisa Bates, MATHEW RN Mercedez Dooley rg4
[2022-05-29 13:46] VITALS: BP 116/72; TEMP 98.9; O2SAT 98
== END 2022-05-29 13:42 | disposition home or self-care (01) ==
LOC: ER 11:25
DX: R07.89 Other chest pain (principal); W01.0XXA Fall on same level from slipping, tripping and stumbling without subsequent striking against object, initial encounter
CPT/HCPCS: 71250; 81003; 81025; 99283